=== PATIENT | female | born 1980 | race Caucasian/White ===

== ENCOUNTER 2016-07-08 13:11 | Emergency (ER) | payer OTHER ==
[2016-07-08 13:43] VITALS: BP 130/93
[2016-07-08] MEDS ORDERED: Ketorolac INJ* 60 MG/2 ML VIAL IM ONE (13:59)
--- NOTE | 2016-07-08 14:10 | UC ---
Hip/Pelvis Pain - HPI Summary HPI Summary: patient presents with c/o left hip pain that began s/p slipping on wet grass this morning. Pt has history left labral tear and surgical repair. And left hip replacement and chronic pain, weakness, numbness and swelling. Pt left hip pain has worsened s/p slip on grass 4 hours ago. - History Of Current Complaint Chief Complaint: UCLowerExtremity Stated Complaint: LEFT LEG PAIN Time Seen by Provider: 07/08/16 13:35 Hx Obtained From: Patient Hx Last Menstrual Period: n/a ?: No Onset/Duration: Sudden Onset Timing: Constant Severity Initially: Mild Severity Currently: Moderate Character Of Pain: Sharp, Dull, Aching, Burning Aggravating Factor(s): Movement, Weight Bearing Alleviating Factor(s): Rest, Position Associated Signs And Symptoms: Positive: Other - left hip pain - Allergies/Home Medications Allergies/Adverse Reactions: Allergies Allergy/AdvReac Type Severity Reaction Status Date / Time Codeine Allergy Severe Difficulty Verified 01/30/16 15:23 Breathing, hives Sulfa Drugs Allergy Severe Difficulty Verified 01/30/16 15:23 Breathing, hives CI Pigment Blue 63 Allergy See Comment Verified 01/30/16 15:23 [From Cymbalta] Duloxetine [From Cymbalta] Allergy See Comment Verified 01/30/16 15:23 Gabapentin AdvReac Headache Verified 07/08/16 13:44 ADHESIVE Allergy Rash And Uncoded 01/30/16 15:23 Itching Home Medications: Home Medications Acetaminophen TAB* [Tylenol TAB*] 1,000 mg PO Q24H PRN 07/08/16 [History Confirmed 07/08/16] PMH/Surg Hx/FS Hx/Imm Hx - Additional Past Medical History Additional PMH: history of labral tear surgery left hip and total left hip repair. Previously Healthy: No - see Past surgical HX Other History Of: Negative For: HIV, Hepatitis B, Hepatitis C, Anticoagulant Therapy - Surgical History Surgical History: Yes Surgery Procedure, Year, and Place: tubal ligation. Hysterectomy (ovaries in tact) 04/2014; left hip labrum 03/2015 Dr. Capps, [facility]; Total hip 08/2015. KIDNEY STENTS [id number] THAT WERE REMOVED Other Surgical History: tubal ligation. Hysterectomy (ovaries in tact) 04/2014 - Family History Known Family History: Positive: None, Cardiac Disease, Hypertension - Social History Lives: With Family Alcohol Use: Rare Substance Use Type: None Smoking Status (MU): Never Smoked Tobacco - Immunization History Most Recent Influenza Vaccination: february 2015 Review of Systems Constitutional: Negative Skin: Negative Eyes: Negative ENT: Negative Respiratory: Negative Cardiovascular: Negative Gastrointestinal: Negative Genitourinary: Negative Motor: Decreased ROM - left hip Neurovascular: Negative Musculoskeletal: Arthralgia - left hip, Decreased ROM - left hip, Myalgia - left hip Neurological: Weakness - left hip Psychological: Negative All Other Systems Reviewed And Are Negative: Yes Physical Exam Triage Information Reviewed: Yes Vital Signs: Initial Vital Signs Temp 99 F 07/08/16 13:37 Pulse 94 07/08/16 13:37 Resp 18 07/08/16 13:37 BP 130/93 07/08/16 13:37 Vital Signs Reviewed: Yes Neck exam: Normal Respiratory Exam: Normal Musculoskeletal Exam: Other - left hip/thigh posterior large post surgical scar well healed, Neurological Exam: Other Neurological: Positive: Other: - left hip weakness Psychological Exam: Normal Skin Exam: Other - scar left hip/thigh s/p labral tear repair and left total hip replacement Hip Injury Course/Dx - Differential Dx/Diagnosis Differential Diagnosis/HQI/PQRI: Arthritis, Sprain, Strain Provider Diagnoses: left hip sprain. Discharge - Discharge Plan Condition: Stable Disposition: HOME Prescriptions: Ketorolac TAB * [Toradol TAB *] 10 mg PO Q6H #16 tab Patient Education Materials: Arthralgia (ED), Hip Pain (ED) Referrals: Salazar Potter MD [Primary Care Provider] - Genaro QUESADA,Nestor Romero [Medical Doctor] - Additional Instructions: Please follow up with your Orthopedic provider as soon as possible.
--- NOTE | 2016-07-08 14:43 | RAD ---
Indication: Left hip pain. 2 views of left hip and an AP view the pelvis demonstrates left hip replacement in satisfactory position. Pelvic ring is intact. IMPRESSION: Left hip replacement in satisfactory position.
== END 2016-07-08 14:49 | disposition home or self-care (01) ==
LOC: UCCORT 13:11
DX: S73.102A Unspecified sprain of left hip, initial encounter (principal); X50.0XXA Overexertion from strenuous movement or load, initial encounter; Z96.642 Presence of left artificial hip joint
CPT/HCPCS: 96372; 99212; G0463; J1885

== ENCOUNTER 2016-10-09 14:32 | Emergency (ER) | payer OTHER ==
--- NOTE | 2016-10-09 16:03 | RAD ---
Indication: Fall today. Burning sensation and extreme pain lateral and posterior LEFT hip with distal radiation. Total hip replacement. Comparison: January 30, 2016 radiographs. Technique: Noncontrast CT LEFT proximal femur diaphysis through knee. Multiplanar reformation. Report: Negative for subcutaneous edema or loculated hematoma. No CT abnormality of the skeletal musculature. Normal articular alignment at the knee. Minimal femoral tibial joint osteophytosis without significant joint space narrowing. Negative for knee joint effusion. 1.1 cm sharply circumscribed indolent appearing lesion at the posterior medial metaphysis of the femur with chondroid matrix calcifications is consistent with a benign osteochondroma. Negative for fracture. IMPRESSION: No traumatic injury of the visualized LEFT femur or knee evident.
--- NOTE | 2016-10-09 16:08 | RAD ---
Indication: Fall today. Burning sensation from the LEFT hip through the lower extremity. Total joint replacement. Comparison: Femur CT of the same date and July 08, 2016 radiographs. Technique: Multidetector CT pelvis without contrast. Multiplanar reformation with bone algorithm. Report: The prosthetic LEFT hip is normally located. No periprosthetic fracture or periprosthetic lucency to suggest loosening. Negative for pelvic fracture or joint diastases. No soft tissue plane hematoma evident. No significant skeletal muscle atrophy. Mild osteoarthritis at the pubic symphysis. Mild L4-L5 and moderate L5-S1 facet joint osteoarthritis. No suspicious finding of the visualized pelvic viscera. IMPRESSION: 1. Normally located LEFT total hip prosthesis without evidence for loosening or periprosthetic fracture. 2. No traumatic injury evident.
--- NOTE | 2016-10-09 16:38 | UC ---
Hip/Pelvis Pain - HPI Summary HPI Summary: HISTORY OF CHRONIC LEFT HIP AND LEG PAIN. TODAY FELL WHILE WALKING DOG. PAIN BECAME MORE SEVERE. HAS APPOINTMENT NEXT WEEK FOR FOLLOW UP WITH PRIMARY CARE TO SEEK MORE EVALUATION FOR CHRONIC CONCERN. ABLE TO BEAR WEIGHT. PAIN RADIATES DOWN LATERAL AND MEDIAL LEFT THIGH. SKIN IS SENSITIVE, NO RASHES. - History Of Current Complaint Chief Complaint: UCLowerExtremity Stated Complaint: HIP & LEG PAIN FROM FALL Time Seen by Provider: 10/09/16 14:59 Hx Obtained From: Patient, Family/Supervisor Delivery Department Hx Last Menstrual Period: n/a Onset/Duration: Sudden Onset, Gradual Onset, Lasting Hours, Still Present, Worse Since - TODAY Severity Initially: Moderate Severity Currently: Moderate Pain Intensity: 4 Pain Scale Used: 0-10 Numeric Character Of Pain: Dull, Aching, Burning Aggravating Factor(s): Movement, Weight Bearing Alleviating Factor(s): Nothing Associated Signs And Symptoms: Positive: Negative Related History: Similar Episode/Dx As - Risk Factors Septic Arthritis Risk Factor: Negative - Allergies/Home Medications Allergies/Adverse Reactions: Allergies Allergy/AdvReac Type Severity Reaction Status Date / Time Codeine Allergy Severe Difficulty Verified 10/09/16 14:37 Breathing, hives Sulfa Drugs Allergy Severe Difficulty Verified 10/09/16 14:37 Breathing, hives CI Pigment Blue 63 Allergy See Comment Verified 10/09/16 14:37 [From Cymbalta] Duloxetine [From Cymbalta] Allergy See Comment Verified 10/09/16 14:37 Gabapentin AdvReac Headache Verified 10/09/16 14:37 ADHESIVE Allergy Rash And Uncoded 10/09/16 14:37 Itching Home Medications: Home Medications Alendronate Sodium [Fosamax-] 1 tab PO WEEKLY 10/09/16 [History Confirmed ] PMH/Surg Hx/FS Hx/Imm Hx Previously Healthy: Yes Other History Of: Negative For: HIV, Hepatitis B, Hepatitis C, Anticoagulant Therapy - Surgical History Surgical History: Yes Surgery Procedure, Year, and Place: tubal ligation. Hysterectomy (ovaries in tact) 04/2014; left hip labrum 03/2015 Dr. Capps, [facility]; Total hip 08/2015. KIDNEY STENTS [id number] THAT WERE REMOVED Other Surgical History: tubal ligation. Hysterectomy (ovaries in tact) 04/2014 - Family History Known Family History: Positive: None, Cardiac Disease, Hypertension - Social History Occupation: Disabled Lives: With Family Alcohol Use: Rare Substance Use Type: None Smoking Status (MU): Never Smoked Tobacco - Immunization History Most Recent Influenza Vaccination: february 2015 Review of Systems Constitutional: Negative Skin: Negative Eyes: Negative ENT: Negative Respiratory: Negative Cardiovascular: Negative Gastrointestinal: Negative Genitourinary: Negative Motor: Negative Neurovascular: Negative Musculoskeletal: Arthralgia - LEFT HIP, LEFT THIGH, Myalgia Neurological: Negative Psychological: Negative All Other Systems Reviewed And Are Negative: Yes Physical Exam Triage Information Reviewed: Yes Appearance: Well-Appearing, No Pain Distress, Well-Nourished Vital Signs Reviewed: Yes Eye Exam: Normal ENT Exam: Normal ENT: Positive: Normal ENT inspection, Hearing grossly normal, TMs normal Dental Exam: Normal Neck exam: Normal Respiratory Exam: Normal Respiratory: Positive: Chest non-tender, Lungs clear, Normal breath sounds, No respiratory distress, No accessory muscle use Cardiovascular Exam: Normal Cardiovascular: Positive: RRR, No Murmur, Pulses Normal Abdominal Exam: Normal Musculoskeletal: Positive: ROM Intact, Strength Limited @ - LEFT HIP, Edema @ - LEFT THIGH Neurological Exam: Normal Psychological Exam: Normal Skin Exam: Normal Hip Injury Course/Dx - Differential Dx/Diagnosis Differential Diagnosis/HQI/PQRI: Sprain, Strain Provider Diagnoses: ACUTE ON CHRONIC PAIN LEFT HIP AND THIGH Discharge - Discharge Plan Condition: Stable Disposition: HOME Prescriptions: traMADol TAB* [Ultram*] 50 mg PO Q6HR PRN #20 tab MDD four tabs PRN Reason: Pain Patient Education Materials: Chronic Pain (ED), Hip Pain (ED), Leg Pain (ED) Referrals: Salazar Potter MD [Primary Care Provider] -
== END 2016-10-09 16:28 | disposition home or self-care (01) ==
LOC: UCEAST 14:32
DX: M25.552 Pain in left hip (principal); M79.652 Pain in left thigh; Z96.642 Presence of left artificial hip joint; Z88.5 Allergy status to narcotic agent; Z88.2 Allergy status to sulfonamides
CPT/HCPCS: 72192; 99212; G0463

== ENCOUNTER 2016-12-09 16:19 | Emergency (ER) | payer OTHER ==
[2016-12-09] MEDS ORDERED: Dexamethasone IV* 4 MG/ML 1 ML (4 MG) IM ONE (17:15)
[2016-12-09] MEDS ORDERED: Morphine INJ* 4 MG/ML 1 ML CARPUJECT IM ONE (17:15)
[2016-12-09] MEDS ORDERED: HYDROmorphone INJ* 2 MG/ML CARPUJECT SYRINGE IM ONE ×2 (18:17→20:11)
[2016-12-09] MEDS ORDERED: Methocarbamol TAB* 500 MG PO ONE (18:18)
--- NOTE | 2016-12-09 20:20 | ED ---
Ar Arnold Angela, scribed for Cristo Garcia MD on 12/09/16 at 1703 . Lower Extremity - HPI Summary HPI Summary: This pt is a 36 y/o female presenting to [facility] c/o worsening left hip pain since today. Pt states she had a hysterectomy in April 2014 and after this surgery she had severe left leg pain. Pt had left hip labrum surgery in 2015. She had total left hip replacement in August 2015. Pt was diagnosed with RSD this year and since then she has had ongoing pain every day. Pt reports that she had pain this morning but it was not as severe as it is right now. She states she laid down and upon waking up she had severe pain on left hip area. Pt has had this severe pain in the past before. Pt describes her pain as severe burn." She notes her pain radiates to the posterior aspect of her left leg and across her pelvic area. She describes sometimes burning on the left side of the perineal area and left sided abd burning. Pt additionally c/o sore feet, Pt denies fever, weakness in LE, saddle anesthesia, bowel or urinary incontinence. Before having this pain, she denies any trauma. Pt had an appointment on Dec.17 for a nerve block. Pt also has an upcoming appointment with her PCP on 12/14/16. Pt has taken tramadol before but states it does nothing for her. She states having taken oxycodone 10s in the past which has worked for her, but does not "like taking medications overall." - History of Current Complaint Chief Complaint: EDExtremityLower Stated Complaint: LEFT HIP AND LEG PAIN Hx Obtained From: Patient Hx Last Menstrual Period: none s/p hysterectomy Mechanism Of Injury: Other - pain since 2014 Onset of Pain: Hours Onset/Duration: Hours Severity Initially: Severe Severity Currently: Severe Pain Intensity: 9 Pain Scale Used: 0-10 Numeric Timing: Lasting Hours Location: Radiates To - left posterior leg, acros pelvic area Character Of Pain: Burning Associated Signs And Symptoms: Positive: Weakness. Negative: Fever Able to Bear Weight: Yes Related History: Other - diagnosed with RSD this year - Allergies/Home Medications Allergies/Adverse Reactions: Allergies Allergy/AdvReac Type Severity Reaction Status Date / Time Codeine Allergy Severe Difficulty Verified 12/09/16 16:27 Breathing, hives Sulfa Drugs Allergy Severe Difficulty Verified 12/09/16 16:27 Breathing, hives CI Pigment Blue 63 Allergy See Comment Verified 12/09/16 16:27 [From Cymbalta] Duloxetine [From Cymbalta] Allergy See Comment Verified 12/09/16 16:27 Gabapentin AdvReac Headache Verified 12/09/16 16:27 ADHESIVE Allergy Rash And Uncoded 12/09/16 16:27 Itching PMH/Surg Hx/FS Hx/Imm Hx Endocrine/Hematology History: Denies: Hx Anticoagulant Therapy, Hx Diabetes, Hx Thyroid Disease Cardiovascular History: Denies: Hx Congestive Heart Failure, Hx Deep Vein Thrombosis, Hx Hypertension , Hx Myocardial Infarction, Hx Pacemaker/ICD Respiratory History: Denies: Hx Asthma, Hx Chronic Obstructive Pulmonary Disease (COPD), Hx Lung Cancer, Hx Pneumonia, Hx Pulmonary Embolism GI History: Denies: Hx Gall Bladder Disease, Hx Gastrointestinal Bleed, Hx Ulcer, Hx Urosepsis History: Reports: Hx Kidney Stones - No stones, but has history of stents. Denies: Hx Renal Disease Sensory History: Denies: Hx Hearing Aid Neurological History: Reports: Hx Migraine - In the past. Denies: Hx Dementia, Hx Seizures, Hx Transient Ischemic Attacks (TIA) Psychiatric History: Reports: Hx Anxiety Denies: Hx Depression, Hx Panic Disorder, Hx Schizophrenia, Hx Bipolar Disorder - Surgical History Surgery Procedure, Year, and Place: tubal ligation. Hysterectomy (ovaries in tact) 04/2014; left hip labrum 03/2015 Dr. Capps, [facility]; Total hip 08/2015. KIDNEY STENTS [id number] THAT WERE REMOVED Infectious Disease History: No Infectious Disease History: Denies: Hx Clostridium Difficile, Hx Hepatitis, Hx Human Immunodeficiency Virus (HIV), Hx of Known/Suspected MRSA, Hx Shingles, Hx Tuberculosis, Hx Known/ Suspected VRE, Hx Known/Suspected VRSA, History Other Infectious Disease, Traveled Outside the [place] in Last 30 Days - Family History Known Family History: Positive: Cardiac Disease, Hypertension - Social History Alcohol Use: Rare Substance Use Type: Reports: None Smoking Status (MU): Never Smoked Tobacco Review of Systems Negative: Fever, Chills Eyes: Negative ENT: Negative Cardiovascular: Negative Respiratory: Negative Negative: incontinence - bowel or urinary, other - saddle anesthesia Positive: Other - left hip pain, posterior leg pain, pelvic area pain, left hip severe burning sensation, sore feet. Negative: Weakness, Numbness All Other Systems Reviewed And Are Negative: Yes Physical Exam - Summary Physical Exam Summary: Appearance: Well-appearing, Well-nourished. Pt is in no acute distress. Skin: Warm Eyes: Normal ENT: Normal Neck: Supple, nontender Respiratory: Clear to auscultation Cardiovascular: Normal Abdomen: Soft, nontender Bowel: Present Musculoskeletal: There is no erythema or edema around left hip. There is limited ROM secondary to pain. There is no numbness or weakness in LE. There is mild tenderness to palpation around the left hip. There are normal pulses in distal LE. Neurological: Normal, A&Ox3 Psychiatric: Normal Triage Information Reviewed: Yes Vital Signs On Initial Exam: Initial Vitals Temp Pulse Resp BP Pulse Ox 97.8 F 88 20 149/128 97 12/09/16 16:21 12/09/16 16:21 12/09/16 16:21 12/09/16 16:21 12/09/16 16:21 Vital Signs Reviewed: Yes - Bin Coma Scale Coma Scale Total: 15 Diagnostics - Vital Signs Vital Signs Temp Pulse Resp BP Pulse Ox 12/09/16 16:21 97.8 F 88 20 149/128 97 - Laboratory Lab Statement: Any lab studies that have been ordered have been reviewed, and results considered in the medical decision making process. Re-Evaluation - Re-Evaluation Second Eval Re-Evaluation Time: 20:00 Lower Extremity Course/Dx - Diagnoses Provider Diagnoses: RSD (reflex sympathetic dystrophy) Discharge - Discharge Plan Condition: Improved Disposition: HOME Prescriptions: Oxycodone TAB(NF) [Oxycodone HCl 10 MG] 10 mg PO Q6H PRN #10 tab MDD 4 TABS PRN Reason: Pain - Moderate To Severe Patient Education Materials: Hip Pain (ED) Referrals: Salazar Potter MD [Primary Care Provider] - Omari Martinez MD [Medical Doctor] - Additional Instructions: PLEASE MAKE AN APPOINTMENT FIRST THING IN THE MORNING TO BE SEEN BY YOUR NEUROLOGIST WITHIN 1 WEEK PLEASE RETURN TO THE EMERGENCY ROOM IF YOU HAVE ANY WORSENING OR CONCERNING SYMPTOMS The documentation as recorded by the Ar ray Angela accurately reflects the service I personally performed and the decisions made by , Cristo Garcia MD.
[2016-12-09] MEDS ORDERED: oxyCODONE TAB* 5 MG TAB PO ONE (20:51)
[2016-12-09 21:07] VITALS: BP 133/90
== END 2016-12-09 21:07 | disposition home or self-care (01) ==
LOC: ED 16:19
DX: G90.50 Complex regional pain syndrome I, unspecified (principal); M25.552 Pain in left hip
CPT/HCPCS: 96372; 99283; A9270-GY; J1100; J1170; J2270

== ENCOUNTER 2016-12-27 21:51 | Emergency (ER) | payer OTHER ==
[2016-12-27] MEDS ORDERED: HYDROmorphone INJ* 2 MG/ML CARPUJECT SYRINGE IV SLOW PU ONE ×2 (22:12→23:31)
[2016-12-27] MEDS ORDERED: Ondansetron INJ* 2 MG/ML VIAL IV ONE ×2 (22:13→23:36)
--- NOTE | 2016-12-27 22:33 | ED ---
Lower Extremity - HPI Summary HPI Summary: 36 female presents to ED [facility] with complaints of left hip pain with history of CRPS that began a few hours ago today. Patient states pain began suddenly while walking in [place]. Patient has chronic L hip pain not improved with several procedures and treatments over the past 2 years. She first noticed the pain upon wakening from a hysterectomy 2 years ago. She was told she had a labrum tear and that she needed surgery. After the surgery, she developed worsening pain. he then had a full hip replacement d/t the pain, which again, worsened the pain. PCP is Latesha who is trying to get her in to see Dr. Samaniego at the pain clinic, this week as planned. Has had oxycodone in the past with mild improvement. She is tearful on exam. at bedside. Patient states she gets similar pain sometimes but nothing as excruciating as this. Patient states she felt as though her hip was locking out and all of a sudden was unable to move it due to the pain. also complaining of nausea/vomiting due to pain. Patient denies numbness/tingling currently but does have it chronically intermittently. Patient states the pain is sharp and shooting anterior left hip and groin. Does not radiate. No bladder/bowel incontinence. Has not taken any medication for pain today. No trauma or injury. Unable to bear weight, walk or move without significant pain of left hip 10/10. No recent travel or prolonged bed rest. Does use cigarettes. She is tearful on exam. at bedside. - History of Current Complaint Chief Complaint: EDHipPelvisInjury Stated Complaint: LT HIP PAIN Time Seen by Provider: 12/27/16 22:03 Hx Obtained From: Patient Hx Last Menstrual Period: none s/p hysterectomy Mechanism Of Injury: Unknown Onset of Pain: Hours, Prior to Arrival Onset/Duration: Worse Since Severity Initially: Moderate Severity Currently: Severe Pain Intensity: 10 Pain Scale Used: 0-10 Numeric Timing: Constant Location: Is Discrete @ - left anterior hip/ groin Character Of Pain: Sharp - shooting Associated Signs And Symptoms: Positive: Negative Aggravating Factor(s): Standing, Movement, Weight Bearing Alleviating Factor(s): Rest, Nothing Able to Bear Weight: No - Allergies/Home Medications Allergies/Adverse Reactions: Allergies Allergy/AdvReac Type Severity Reaction Status Date / Time Codeine Allergy Severe Difficulty Verified 12/27/16 21:57 Breathing, hives Sulfa Drugs Allergy Severe Difficulty Verified 12/27/16 21:57 Breathing, hives CI Pigment Blue 63 Allergy See Comment Verified 12/27/16 21:57 [From Cymbalta] Duloxetine [From Cymbalta] Allergy See Comment Verified 12/27/16 21:57 Gabapentin AdvReac Headache Verified 12/27/16 21:57 ADHESIVE Allergy Rash And Uncoded 12/27/16 21:57 Itching PMH/Surg Hx/FS Hx/Imm Hx Endocrine/Hematology History: Denies: Hx Anticoagulant Therapy, Hx Diabetes, Hx Thyroid Disease Cardiovascular History: Denies: Hx Congestive Heart Failure, Hx Deep Vein Thrombosis, Hx Hypertension , Hx Myocardial Infarction, Hx Pacemaker/ICD Respiratory History: Denies: Hx Asthma, Hx Chronic Obstructive Pulmonary Disease (COPD), Hx Lung Cancer, Hx Pneumonia, Hx Pulmonary Embolism GI History: Denies: Hx Gall Bladder Disease, Hx Gastrointestinal Bleed, Hx Ulcer, Hx Urosepsis History: Reports: Hx Kidney Stones - No stones, but has history of stents. Denies: Hx Renal Disease Sensory History: Denies: Hx Hearing Aid Neurological History: Reports: Hx Migraine - In the past., Other Neuro Impairments/Disorders - CRPS Denies: Hx Dementia, Hx Seizures, Hx Transient Ischemic Attacks (TIA) Psychiatric History: Reports: Hx Anxiety Denies: Hx Depression, Hx Panic Disorder, Hx Schizophrenia, Hx Bipolar Disorder - Surgical History Surgery Procedure, Year, and Place: tubal ligation. Hysterectomy (ovaries in tact) 04/2014; left hip labrum 03/2015 Dr. Capps, [facility]; Total hip 08/2015. KIDNEY STENTS [id number] THAT WERE REMOVED Infectious Disease History: No Infectious Disease History: Denies: Hx Clostridium Difficile, Hx Hepatitis, Hx Human Immunodeficiency Virus (HIV), Hx of Known/Suspected MRSA, Hx Shingles, Hx Tuberculosis, Hx Known/ Suspected VRE, Hx Known/Suspected VRSA, History Other Infectious Disease, Traveled Outside the [place] in Last 30 Days - Family History Known Family History: Positive: None, Cardiac Disease, Hypertension - Social History Alcohol Use: Rare Hx Substance Use: No Substance Use Type: Reports: None Hx Tobacco Use: No Smoking Status (MU): Never Smoked Tobacco Review of Systems Constitutional: Negative Cardiovascular: Negative Respiratory: Negative Positive: Arthralgia, Myalgia, Decreased ROM - left hip Skin: Negative Neurological: Negative All Other Systems Reviewed And Are Negative: Yes Physical Exam Triage Information Reviewed: Yes Vital Signs On Initial Exam: Initial Vitals Temp Pulse Resp BP Pulse Ox 98.7 F 83 18 106/64 98 12/27/16 21:55 12/27/16 21:55 12/27/16 21:55 12/27/16 21:55 12/27/16 21:55 Vital Signs Reviewed: Yes Appearance: Positive: Well-Appearing, Well-Nourished, Pain Distress - moderate- severe Skin: Positive: Warm, Skin Color Reflects Adequate Perfusion, Dry, Other - scar noted at left hip from prior surgical repair/replacement of hip. Negative: Cold , Soft, Cyanosis @, Pale, Erythema @ Head/Face: Positive: Normal Head/Face Inspection Eyes: Positive: Conjunctiva Clear ENT: Positive: Hearing grossly normal Neck: Positive: Supple, Nontender Respiratory/Lung Sounds: Positive: Clear to Auscultation, Breath Sounds Present. Negative: Rales, Rhonchi, Wheezes Cardiovascular: Positive: Normal, RRR, Pulses are Symmetrical in both Upper and Lower Extremities - 2+ pedal b/l. Negative: Murmur, Rub Bowel Sounds: Positive: Present Musculoskeletal: Positive: Limited @ - unable to move left hip/ LE due to pain, Pain @ - left hip with movement and touch. Negative: Interruption @ - exam however limited due to patient being uncooperative, Abnormal @ - no obvious crepitus step off or obvious deformity noted, LE appear to be of equal length and not externally rotated. however exam again was limited due to patients pain and unable to move LE for examination, laying on right side during exam, Edema Left, Edema Right Neurological: Positive: Normal, Sensory/Motor Intact, Alert, Oriented to Person Place, Time, CN Intact II-III, NV Bundle Intact Distally, Unable to Assess Gait. Negative: Normal Gait Diagnostics - Vital Signs Vital Signs Temp Pulse Resp BP Pulse Ox 12/27/16 21:59 86 98 12/27/16 21:56 106/64 12/27/16 21:55 98.7 F 83 18 106/64 98 - Laboratory Result Diagrams: 12/27/16 22:50 12/27/16 22:50 Lab Statement: Any lab studies that have been ordered have been reviewed, and results considered in the medical decision making process. - Radiology left hip/pelvis Xray Interpretation: No Acute Changes Radiology Interpretation Completed By: ED Physician - myself and Dr Husain - Ultrasound No standard instances Ultrasound Interpretation: No Acute Changes - No DVT Ultrasound Interpretation Completed By: Radiologist - and myself Re-Evaluation - Re-Evaluation First Eval Re-Evaluation Time: 23:15 Change: Improved - had some relief after medication from pain and nausea Second Eval Re-Evaluation Time: 00:30 Change: Improved - feeling a little better after medication, updated on labs and imaging, waiting u/s results Lower Extremity Course/Dx - Course Course Of Treatment: xray of hip and pelvis obtained and unremarkable. given toradol, dilaudid, valium and zofran. had some relief. U/S obtained and negative. normal labs, vitals and PE findings. no concern for infection or neurologic deficit. Patient has been seen multiple times for similar pain without findings. appears to be chronic issue related to CRPS. told she would have to have follow up with pcp and chronic pain physician. continue pain medication, NSAID and muscle relaxer at home. rest. continue attempt to get into pain clinc this week, as planned. aware of worsening signs and symptoms. follow up with pcp. patient understands and voices no concerns. I stop reference :Reference #: [id number] - Diagnoses Differential Diagnosis/HQI/PQRI: Positive: Arthritis, Dislocation, Infection, Sprain, Strain Provider Diagnoses: Chronic left hip pain, CRPS (complex regional pain syndrome) - Physician Notifications Discussed Care Of Patient With: Dr Husain Discharge - Discharge Plan Condition: Stable Disposition: HOME Prescriptions: Baclofen TAB* [Lioresal TAB*] 5 mg PO TID PRN #15 tab PRN Reason: Spasms oxyCODONE TAB* [Roxycodone TAB 5 mg*] 10 mg PO Q8H PRN #8 tab MDD 2 PRN Reason: Pain Patient Education Materials: Hip Pain (ED) Referrals: Malka Charlton MD [Primary Care Provider] - Additional Instructions: Take medications as prescribed only as needed. Recommend finding CRPS specialist. Please follow up with Dr. Samaniego and your PCP Continue to take ibuprofen 600mg three times daily
[2016-12-27 23:10] LABS: Hematocrit 38 % (35-47); Hemoglobin 13.4 g/dl (12.0-16.0); Mean Corpuscular HGB Conc 35 g/dl (31-36); Mean Corpuscular Hemoglobin 33 pg (27-31); Mean Corpuscular Volume 94 fL (80-97); Mean Platelet Volume 9 um3 (7.4-10.4); Red Blood Count 4.08 10^6/ul (4.0-5.4); Red Cell Distribution Width 13 % (10.5-15); White Blood Count 9.5 10^3/ul (3.5-10.8)
[2016-12-27] MEDS ORDERED: Ketorolac INJ* 30 MG/ML 1 ML VIAL IV PUSH ONE (23:21)
[2016-12-27] MEDS ORDERED: Orphenadrine Citrate IV* 30 MG/ML 2 ML VIAL IV ONE (23:21)
[2016-12-27 23:24] LABS: ALT 13 U/L (7-52); AST 12 U/L (13-39); Albumin 3.9 g/dL (3.2-5.2); Alkaline Phosphatase 50 U/L (34-104); Anion Gap 4 mmol/L (2-11); BUN/Creatinine Ratio 20.5 (8-20); Blood Urea Nitrogen 16 mg/dL (6-24); CO2 Carbon Dioxide 27 mmol/L (22-32); Calcium 9.5 mg/dL (8.6-10.3); Chloride 104 mmol/L (101-111); EGFR African American 107.5 (>60); EGFR Non-African American 83.6 (>60); Globulin 2.6 g/dL (2-4); Glucose 92 mg/dL (70-100); Potassium 3.6 mmol/L (3.5-5.0); Sodium 135 mmol/L (133-145); Total Protein 6.5 g/dL (6.4-8.9)
[2016-12-27] MEDS ORDERED: Promethazine INJ(RESTRICTED)* 25 MG/ML 1 ML VIAL IV ONE (23:31)
[2016-12-27] MEDS ORDERED: Diazepam SYRINGE* 5 MG/ML 10 ML SYRINGE (50 MG total) IV ONE (23:35)
[2016-12-28] MEDS ORDERED: oxyCODONE TAB* 5 MG TAB PO ONE (01:36)
[2016-12-28 01:45] VITALS: BP 91/60
[2016-12-28 03:47] LABS: C Reactive Protein < 1.00 mg/L (< 5.00)
--- NOTE | 2016-12-28 07:37 | RAD ---
HISTORY: Left hip pain COMPARISONS: July 08, 2016 VIEWS: 3, Frontal view of the pelvis with frontal and frog-leg views of the left hip FINDINGS: BONE DENSITY: Normal. BONES: The patient is status post left hip arthroplasty. There is no hardware failure or osteolysis. JOINTS: The patient is status post left hip arthroplasty. ALIGNMENT: There is no dislocation. SOFT TISSUES: Unremarkable. OTHER FINDINGS: None. IMPRESSION: STATUS POST LEFT HIP ARTHROPLASTY. NO ACUTE OSSEOUS INJURY. IF SYMPTOMS PERSIST, RECOMMEND REPEAT IMAGING.
--- NOTE | 2016-12-28 07:38 | RAD ---
HISTORY: Left leg pain COMPARISONS: None relevant TECHNIQUE: Multiple transverse and longitudinal ultrasound images were obtained of the left lower extremity from the level of the common femoral vein inferiorly through to the infrapopliteal veins using grayscale, color Doppler, and spectral Doppler imaging with and without compression and with augmentation. Comparison images were obtained of the contralateral common femoral vein. FINDINGS: VEINS: The venous system of the left lower extremity is compressible throughout its course, with normal flow on color Doppler imaging and normal response to augmentation on spectral Doppler imaging. SOFT TISSUES: Unremarkable. OTHER FINDINGS: None. IMPRESSION: NO LEFT LOWER EXTREMITY DEEP VEIN THROMBOSIS
== END 2016-12-28 01:49 | disposition home or self-care (01) ==
LOC: ED 21:51
DX: M25.552 Pain in left hip (principal); G90.50 Complex regional pain syndrome I, unspecified
CPT/HCPCS: 36415; 80053; 85025; 86140; 96374; 96375; 96376; 99285; A9270-GY; J1170; J1885; J2405; J2550; J3360

== ENCOUNTER 2017-01-08 11:39 | Emergency (ER) | payer OTHER ==
[2017-01-08] MEDS ORDERED: HYDROmorphone INJ* 1 MG/ML CARPUJECT SYRINGE IV ONE (12:39)
[2017-01-08] MEDS ORDERED: PROCHLORPERAZINE INJ 5 MG/ML 2 ML VIAL IV PRN (12:39)
[2017-01-08] MEDS ORDERED: NS 0.9% 1000 ML* 1,000 ML IV ONE (12:39)
[2017-01-08] MEDS ORDERED: PROCHLORPERAZINE INJ 5 MG/ML 2 ML VIAL ONE (12:51)
[2017-01-08 12:56] LABS: Hematocrit 41 % (35-47); Hemoglobin 14.2 g/dl (12.0-16.0); Mean Corpuscular HGB Conc 35 g/dl (31-36); Mean Corpuscular Hemoglobin 32 pg (27-31); Mean Corpuscular Volume 93 fL (80-97); Mean Platelet Volume 9 um3 (7.4-10.4); Red Blood Count 4.37 10^6/ul (4.0-5.4); Red Cell Distribution Width 12 % (10.5-15); White Blood Count 4.1 10^3/ul (3.5-10.8)
[2017-01-08 13:13] LABS: ALT 11 U/L (7-52); AST 14 U/L (13-39); Albumin 4.3 g/dL (3.2-5.2); Alkaline Phosphatase 48 U/L (34-104); Anion Gap 8 mmol/L (2-11); Blood Urea Nitrogen 13 mg/dL (6-24); C Reactive Protein 1.46 mg/L (< 5.00); CO2 Carbon Dioxide 25 mmol/L (22-32); Calcium 9.7 mg/dL (8.6-10.3); Chloride 105 mmol/L (101-111); EGFR African American 102.9 (>60); Globulin 2.6 g/dL (2-4); Glucose 87 mg/dL (70-100); Potassium 3.6 mmol/L (3.5-5.0); Sodium 138 mmol/L (133-145); Total Protein 6.9 g/dL (6.4-8.9)
[2017-01-08 14:32] VITALS: BP 93/44
--- NOTE | 2017-01-08 16:42 | ED ---
Molly Arnold Gabriel, scribed for Kev Shah MD on 01/08/17 at 1238 . Complex/Multi-Sys Presentation - HPI Summary HPI Summary: This patient is a 36 year old F presenting to [facility] accompanied by with a chief complaint of vomiting since a week ago. Patient states that the chronic pain she is in triggers her vomiting. The patient rates the pain 8/10 in severity. These episodes are not uncommon for her but for the last week it has been more persistent. She is trying to get into the pain clinic currently. She saw her primary 2 days ago for this issue and was given Zofram but it has not alleviated any symptoms. She isnt able to tolerant PO intake and hasnt urinated in two days. - History Of Current Complaint Chief Complaint: EDNauseaVomitDiarrh Time Seen by Provider: 01/08/17 12:16 Hx Obtained From: Patient Onset/Duration: Lasting Weeks - 1, Still Present Timing: Intermittent, Lasting: Associated Signs And Symptoms: Positive: Other - pain Related History: Similar Episode/Diagnosed As: - Allergies/Home Medications Allergies/Adverse Reactions: Allergies Allergy/AdvReac Type Severity Reaction Status Date / Time Codeine Allergy Severe Difficulty Verified 12/27/16 21:57 Breathing, hives Sulfa Drugs Allergy Severe Difficulty Verified 12/27/16 21:57 Breathing, hives CI Pigment Blue 63 Allergy See Comment Verified 12/27/16 21:57 [From Cymbalta] Duloxetine [From Cymbalta] Allergy See Comment Verified 12/27/16 21:57 Gabapentin AdvReac Headache Verified 12/27/16 21:57 ADHESIVE Allergy Rash And Uncoded 12/27/16 21:57 Itching PMH/Surg Hx/FS Hx/Imm Hx Previously Healthy: No Endocrine/Hematology History: Denies: Hx Anticoagulant Therapy, Hx Diabetes, Hx Thyroid Disease Cardiovascular History: Denies: Hx Congestive Heart Failure, Hx Deep Vein Thrombosis, Hx Hypertension , Hx Myocardial Infarction, Hx Pacemaker/ICD Respiratory History: Denies: Hx Asthma, Hx Chronic Obstructive Pulmonary Disease (COPD), Hx Lung Cancer, Hx Pneumonia, Hx Pulmonary Embolism GI History: Denies: Hx Gall Bladder Disease, Hx Gastrointestinal Bleed, Hx Ulcer, Hx Urosepsis History: Reports: Hx Kidney Stones - No stones, but has history of stents. Denies: Hx Renal Disease Sensory History: Denies: Hx Hearing Aid Neurological History: Reports: Hx Migraine - In the past., Other Neuro Impairments/Disorders - CRPS Denies: Hx Dementia, Hx Seizures, Hx Transient Ischemic Attacks (TIA) Psychiatric History: Reports: Hx Anxiety Denies: Hx Depression, Hx Panic Disorder, Hx Schizophrenia, Hx Bipolar Disorder - Surgical History Surgery Procedure, Year, and Place: tubal ligation. Hysterectomy (ovaries in tact) 04/2014; left hip labrum 03/2015 Dr. Capps, [facility]; Total hip 08/2015. KIDNEY STENTS [id number] THAT WERE REMOVED Infectious Disease History: No Infectious Disease History: Denies: Hx Clostridium Difficile, Hx Hepatitis, Hx Human Immunodeficiency Virus (HIV), Hx of Known/Suspected MRSA, Hx Shingles, Hx Tuberculosis, Hx Known/ Suspected VRE, Hx Known/Suspected VRSA, History Other Infectious Disease, Traveled Outside the [place] in Last 30 Days - Family History Known Family History: Positive: Cardiac Disease, Hypertension - Social History Alcohol Use: Rare Hx Substance Use: No Substance Use Type: Reports: None Hx Tobacco Use: No Smoking Status (MU): Never Smoked Tobacco Review of Systems Positive: Vomiting Positive: Other - chronic pain All Other Systems Reviewed And Are Negative: Yes Physical Exam - Summary Physical Exam Summary: Appearance: The patient is well-nourished in no acute distress and in no acute pain. Skin: The skin is warm and dry and skin color reflects adequate perfusion. HEENT: ~The head is normocephalic and atraumatic. The pupils are equal and reactive. The conjunctivae are clear and without drainage. ~Nares are patent and without drainage. ~Mouth reveals moist mucous membranes and the throat is without erythema and exudate. ~The external ears are intact. The ear canals are patent and without drainage. The tympanic membranes are intact. Neck: the neck is supple with full range of motion and non-tender. There are no carotid bruits. ~There is no neck vein distension. Respiratory: Chest is non-tender. ~Lungs are clear to auscultation and breath sounds are symmetrical and equal. Cardiovascular: Heart is regular rate and rhythm. ~There is no murmur or rub auscultated. ~~There is no peripheral edema and pulses are symmetrical and equal. Abdomen: The abdomen is soft and non-tender. ~There are normal bowel sounds heard in all four quadrants and there is no organomegaly palpated. Musculoskeletal: There is no back tenderness noted. ~Tenderness to rom of left hip There is good capillary refill. ~There is no peripheral edema or calf tenderness elicited. Neurological: Patient is alert and oriented to person, place and time. ~The patient has symmetrical motor strength in all four extremities. ~Cranial nerves are grossly intact. Deep tendon reflexes are symmetrical and equal in all four extremities. Psychiatric: The patient has an appropriate affect and does not exhibit any anxiety or depression. Triage Information Reviewed: Yes Vital Signs On Initial Exam: Initial Vitals Temp Pulse Resp BP Pulse Ox 98.0 F 87 18 124/94 98 01/08/17 11:58 01/08/17 11:58 01/08/17 11:58 01/08/17 11:58 01/08/17 11:58 Vital Signs Reviewed: Yes Diagnostics - Vital Signs Vital Signs Temp Pulse Resp BP Pulse Ox 01/08/17 11:58 98.0 F 87 18 124/94 98 - Laboratory Lab Results: Lab Results 01/08/17 01/08/17 Range/Units 12:45 12:45 WBC 4.1 (3.5-10.8) 10^3/ul RBC 4.37 (4.0-5.4) 10^6/ul Hgb 14.2 (12.0-16.0) g/dl Hct 41 (35-47) % MCV 93 (80-97) fL MCH 32 H (27-31) pg MCHC 35 (31-36) g/dl RDW 12 (10.5-15) % Plt Count 224 (150-450) 10^3/ul MPV 9 (7.4-10.4) um3 Neut % (Auto) 49.2 (38-83) % Lymph % (Auto) 36.4 (25-47) % [place] % (Auto) 12.9 H (1-9) % Eos % (Auto) 0.9 (0-6) % Baso % (Auto) 0.6 (0-2) % Absolute Neuts (auto) 2.0 (1.5-7.7) 10^3/ul Absolute Lymphs (auto) 1.5 (1.0-4.8) 10^3/ul Absolute Monos (auto) 0.5 (0-0.8) 10^3/ul Absolute Eos (auto) 0 (0-0.6) 10^3/ul Absolute Basos (auto) 0 (0-0.2) 10^3/ul Absolute Nucleated RBC 0 10^3/ul Nucleated RBC % 0 Sodium 138 (133-145) mmol/L Potassium 3.6 (3.5-5.0) mmol/L Chloride 105 (101-111) mmol/L Carbon Dioxide 25 (22-32) mmol/L Anion Gap 8 (2-11) mmol/L BUN 13 (6-24) mg/dL Creatinine 0.81 (0.51-0.95) mg/dL Est GFR ( Amer) 102.9 (>60) Est GFR (Non-Af Amer) 80.0 (>60) BUN/Creatinine Ratio 16.0 (8-20) Glucose 87 (70-100) mg/dL Calcium 9.7 (8.6-10.3) mg/dL Total Bilirubin 1.90 H (0.2-1.0) mg/dL AST 14 (13-39) U/L ALT 11 (7-52) U/L Alkaline Phosphatase 48 (34-104) U/L C-Reactive Protein 1.46 (< 5.00) mg/L Total Protein 6.9 (6.4-8.9) g/dL Albumin 4.3 (3.2-5.2) g/dL Globulin 2.6 (2-4) g/dL Albumin/Globulin Ratio 1.7 (1-3) Beta HCG, Quant < 0.60 mIU/mL Result Diagrams: 01/08/17 12:45 01/08/17 12:45 Lab Statement: Any lab studies that have been ordered have been reviewed, and results considered in the medical decision making process. Complex Multi-Symp Course/Dx Course Of Treatment: Ms. Shah has been coming in every ten days or so for narcotics to control the pain in her left side and hip. A month os so ago she was referred to [facility] for injections which shee says made her worse. She initially did not want to take medications but now is willing and has been referred to Dr. Samaniego but does not yet have an appointment. I spoke with Dr. samaniego who will get her in to the offic in a timely fashion so we can get some structure to her pain control and better assess shat she needs. In the meantime , I will give her another short course of oxycodone. - Diagnoses Provider Diagnoses: Chronic pain - Physician Notifications Discussed Care Of Patient With: Soy Samaniego Time Discussed With Above Provider: 12:56 Instructed by Provider To: Other - Discussed patient care with in an attempt to address her chronic pain. Discharge - Discharge Plan Condition: Stable Disposition: HOME Prescriptions: oxyCODONE/Acetamin 5/325 MG* [Percocet 5/325 TAB*] 1 tab PO Q6H PRN #20 tab MDD 4 PRN Reason: Pain Patient Education Materials: Oxycodone/Acetaminophen (By mouth), Chronic Pain ( ED) Referrals: Malka Charlton MD [Primary Care Provider] - Soy Samaniego DO [Doctor of Osteopathy] - 3 Days Additional Instructions: RETURN TO THE EMERGENCY DEPARTMENT FOR CHANGING OR WORSENING SYMPTOMS. The documentation as recorded by the Molly ray Gabriel accurately reflects the service I personally performed and the decisions made by me, Kev Shah MD.
== END 2017-01-08 14:33 | disposition home or self-care (01) ==
LOC: ED 11:39
DX: G89.29 Other chronic pain (principal); Z88.5 Allergy status to narcotic agent; Z88.2 Allergy status to sulfonamides; F41.9 Anxiety disorder, unspecified
CPT/HCPCS: 36415; 80053; 84702; 85025; 86140; 96360; 96374; 96375; 99281; J0780; J1170

== ENCOUNTER 2017-01-24 10:31 | Emergency (ER) | payer OTHER ==
--- NOTE | 2017-01-24 13:02 | ED ---
Lower Extremity - HPI Summary HPI Summary: 36 female presents to ED with complaints of chronic left hip pain with history of CRPS that began suddenly yesterday and worsened today. States she feels it is spasming. Patient has chronic L hip pain not improved with several procedures and treatments over the past 2 years. PCP is Latesha who who got her in to see Dr. Samaniego at the pain clinic, however not until, February 17. Has had oxycodone in the past with mild improvement. Patient was seen here a month ago with similar complaints and episode of chronic pain flare. Has not taken any medications at home. at bedside. Patient denies numbness/ tingling currently. Patient states the pain is sharp and shooting anterior left hip and groin. Does not radiate. No bladder/bowel incontinence. No urinary complaints. No new trauma or injury. Unable to bear weight, walk or move without significant pain of left hip 11/17. No recent travel or prolonged bed rest. Does use cigarettes. No other complaints at this time. - History of Current Complaint Chief Complaint: EDExtremityLower Stated Complaint: LEFT LEG PAIN Time Seen by Provider: 01/24/17 11:46 Hx Obtained From: Patient Hx Last Menstrual Period: none s/p hysterectomy Mechanism Of Injury: Other - none Onset of Pain: Days Onset/Duration: Worse Since Severity Initially: Moderate Severity Currently: Severe Pain Intensity: 10 Pain Scale Used: 0-10 Numeric Location: Is Discrete @ - left hip/groin area Character Of Pain: Sharp, Aching, Spasmodic Associated Signs And Symptoms: Positive: Negative Aggravating Factor(s): Standing, Ambulation, Movement, Weight Bearing Alleviating Factor(s): Rest - position Able to Bear Weight: Yes - however not without excrutiating pain 11/17 - Allergies/Home Medications Allergies/Adverse Reactions: Allergies Allergy/AdvReac Type Severity Reaction Status Date / Time Codeine Allergy Severe Difficulty Verified 12/27/16 21:57 Breathing, hives Sulfa Drugs Allergy Severe Difficulty Verified 12/27/16 21:57 Breathing, hives CI Pigment Blue 63 Allergy See Comment Verified 12/27/16 21:57 [From Cymbalta] Duloxetine [From Cymbalta] Allergy See Comment Verified 12/27/16 21:57 Gabapentin AdvReac Headache Verified 12/27/16 21:57 ADHESIVE Allergy Rash And Uncoded 12/27/16 21:57 Itching PMH/Surg Hx/FS Hx/Imm Hx Endocrine/Hematology History: Denies: Hx Anticoagulant Therapy, Hx Diabetes, Hx Thyroid Disease Cardiovascular History: Denies: Hx Congestive Heart Failure, Hx Deep Vein Thrombosis, Hx Hypertension , Hx Myocardial Infarction, Hx Pacemaker/ICD Respiratory History: Denies: Hx Asthma, Hx Chronic Obstructive Pulmonary Disease (COPD), Hx Lung Cancer, Hx Pneumonia, Hx Pulmonary Embolism GI History: Denies: Hx Gall Bladder Disease, Hx Gastrointestinal Bleed, Hx Ulcer, Hx Urosepsis History: Reports: Hx Kidney Stones - No stones, but has history of stents. Denies: Hx Renal Disease Sensory History: Denies: Hx Hearing Aid Neurological History: Reports: Hx Migraine - In the past., Other Neuro Impairments/Disorders - CRPS Denies: Hx Dementia, Hx Seizures, Hx Transient Ischemic Attacks (TIA) Psychiatric History: Reports: Hx Anxiety Denies: Hx Depression, Hx Panic Disorder, Hx Schizophrenia, Hx Bipolar Disorder - Surgical History Surgery Procedure, Year, and Place: tubal ligation. Hysterectomy (ovaries in tact) 04/2014; left hip labrum 03/2015 Dr. Capps, [facility]; Total hip 08/2015. KIDNEY STENTS [id number] THAT WERE REMOVED - Immunization History Immunizations Up to Date: Yes Infectious Disease History: No Infectious Disease History: Denies: Hx Clostridium Difficile, Hx Hepatitis, Hx Human Immunodeficiency Virus (HIV), Hx of Known/Suspected MRSA, Hx Shingles, Hx Tuberculosis, Hx Known/ Suspected VRE, Hx Known/Suspected VRSA, History Other Infectious Disease, Traveled Outside the [place] in Last 30 Days - Family History Known Family History: Positive: None, Cardiac Disease, Hypertension - Social History Alcohol Use: Rare Hx Substance Use: No Substance Use Type: Reports: None Hx Tobacco Use: No Smoking Status (MU): Never Smoked Tobacco Review of Systems Constitutional: Negative Cardiovascular: Negative Respiratory: Negative Positive: Arthralgia, Myalgia, Decreased ROM - left hip Neurological: Negative All Other Systems Reviewed And Are Negative: Yes Physical Exam Triage Information Reviewed: Yes Vital Signs On Initial Exam: Initial Vitals Temp Pulse Resp BP Pulse Ox 98.2 F 89 18 124/88 98 01/24/17 10:41 01/24/17 10:41 01/24/17 10:41 01/24/17 10:41 01/24/17 10:41 Vital Signs Reviewed: Yes Appearance: Positive: Well-Appearing, Well-Nourished, Pain Distress - moderate Skin: Positive: Warm, Skin Color Reflects Adequate Perfusion, Dry. Negative: Cold, Cyanosis @, Pale, Erythema @ Head/Face: Positive: Normal Head/Face Inspection Eyes: Positive: Conjunctiva Clear ENT: Positive: Hearing grossly normal Neck: Positive: Supple, Nontender Respiratory/Lung Sounds: Positive: Clear to Auscultation, Breath Sounds Present. Negative: Rales, Rhonchi, Wheezes Cardiovascular: Positive: Normal, RRR, Pulses are Symmetrical in both Upper and Lower Extremities - 2+ pedal b/l. Negative: Murmur, Rub Abdomen Description: Positive: Nontender, Soft Bowel Sounds: Positive: Present Musculoskeletal: Positive: Limited @ - left LE due to pain, Pain @ - left LE hip / proximal extremity, Other - no crepitus, step off or obvious deformity. no ecchymosis. mild spasming noted during examination. Negative: Interruption @, Abnormal @, Claire Sign Left, Claire Sign Right, Edema Left, Edema Right Neurological: Positive: Normal, Sensory/Motor Intact, Alert, Oriented to Person Place, Time, CN Intact II-III, Reflexes Intact, NV Bundle Intact Distally, Unable to Assess Gait - due to pain - Bin Coma Scale Coma Scale Total: 15 Diagnostics - Vital Signs Vital Signs Temp Pulse Resp BP Pulse Ox 01/24/17 10:41 98.2 F 89 18 124/88 98 - Laboratory Lab Statement: Any lab studies that have been ordered have been reviewed, and results considered in the medical decision making process. Re-Evaluation - Re-Evaluation First Eval Re-Evaluation Time: 15:30 Change: Improved - had some relief from spasms after medication Second Eval Re-Evaluation Time: 16:39 Change: Improved - patient had some relief after medication and is ready to be d /c Lower Extremity Course/Dx - Course Course Of Treatment: given pain medication and muscle relaxant. had relief. no new trauma or injury. Patient is suffering from chronic leg pain that due to her CRPS. therefore no imaging obtained. given 3 days supply of pain releif and muscle relaxant. told she needs to continue trying to get into pain clinic, has appointment february 17. educated the dangers and risks of opiate use and that I will not be able to supply any more to take at home as this has been an ongoing issue for months and due to concern for addiction and adverse effects. patient understands and agrees, voices no concerns. Patient has been seen multiple times for similar pain without findings.no concern for other etiology at this time. appears to be chronic issue related to CRPS. Continue NSAIDs. - Diagnoses Differential Diagnosis/HQI/PQRI: Positive: Strain, Other - crps, chronic left leg pain Provider Diagnoses: Chronic pain of left lower extremity, CRPS (complex regional pain syndrome) Discharge - Discharge Plan Condition: Stable Disposition: HOME Prescriptions: Baclofen TAB* [Lioresal TAB*] 5 mg PO TID PRN #15 tab PRN Reason: Spasms oxyCODONE TAB* [Roxycodone TAB 5 mg*] 10 mg PO Q8H PRN #10 tab MDD 2 PRN Reason: Pain Patient Education Materials: Arthralgia (ED), Leg Pain (ED) Referrals: Malka Charlton MD [Primary Care Provider] - Additional Instructions: Take medications as prescribed only as needed. Recommend finding CRPS specialist. Please follow up with Dr. Samaniego and your PCP Continue to take ibuprofen 600mg three times daily, starting tomorrow.
[2017-01-24] MEDS ORDERED: Ketorolac INJ* 30 MG/ML 1 ML VIAL IV PUSH ONE (13:04)
[2017-01-24] MEDS ORDERED: Diazepam SYRINGE* 5 MG/ML 2 ML SYRINGE (10 MG total) IV ONE ×2 (13:04→14:32)
[2017-01-24] MEDS ORDERED: Ondansetron INJ* 2 MG/ML VIAL IV ONE (14:36)
[2017-01-24] MEDS ORDERED: HYDROmorphone INJ* 2 MG/ML CARPUJECT SYRINGE IV SLOW PU ONE (16:02)
[2017-01-24 17:00] VITALS: BP 110/67
== END 2017-01-24 16:48 | disposition home or self-care (01) ==
LOC: ED 10:31
DX: G90.522 Complex regional pain syndrome I of left lower limb (principal); Z88.5 Allergy status to narcotic agent; Z88.2 Allergy status to sulfonamides
CPT/HCPCS: 96374; 96375; 99282; J1170; J1885; J2405; J3360

== ENCOUNTER 2017-02-08 16:02 | Observation (INO) | payer OTHER ==
[2017-02-08] MEDS ORDERED: HYDROmorphone INJ* 1 MG/ML CARPUJECT SYRINGE IM ONE (17:08)
[2017-02-08] MEDS ORDERED: Ondansetron ODT TAB* 4 MG PO ONE (17:08)
[2017-02-08] MEDS ORDERED: LORazepam TAB(*) 1 MG PO ONE (18:26)
[2017-02-08] MEDS ORDERED: NS 0.9% 1000 ML* 1,000 ML IV ONE (22:20)
[2017-02-08] MEDS ORDERED: Diazepam SYRINGE* 5 MG/ML 2 ML SYRINGE (10 MG total) IV ONE (22:21)
[2017-02-08] MEDS ORDERED: Metoclopramide IV* 5 MG/ML 2 ML VIAL IV SLOW PU ONE (22:21)
[2017-02-08] MEDS ORDERED: Ketorolac INJ* 30 MG/ML 1 ML VIAL IV PUSH ONE (22:22)
[2017-02-08 22:39] LABS: ABS Basophils 0 10^3/ul (0-0.2); ABS Eosinophils 0 10^3/ul (0-0.6); ABS Lymphocytes 2.4 10^3/ul (1.0-4.8); ABS Monocytes 0.6 10^3/ul (0-0.8); ABS Neutrophils 3.8 10^3/ul (1.5-7.7); ABS Nucleated RBC 0 10^3/ul; Eosinophil % 0.5 % (0-6); Hematocrit 38 % (35-47); Hemoglobin 13.2 g/dl (12.0-16.0); Mean Corpuscular HGB Conc 35 g/dl (31-36); Mean Corpuscular Hemoglobin 33 pg (27-31); Mean Corpuscular Volume 94 fL (80-97); Mean Platelet Volume 9 um3 (7.4-10.4); Nucleated Red Blood Cells % 0.1; Platelet Count 225 10^3/ul (150-450); Red Blood Count 4.05 10^6/ul (4.0-5.4); Red Cell Distribution Width 12 % (10.5-15); White Blood Count 6.9 10^3/ul (3.5-10.8)
[2017-02-08 22:53] LABS: EGFR Non-African American 99.6 (>60)
[2017-02-08] MEDS ORDERED: Ketorolac INJ* 60 MG/2 ML VIAL ONE (22:53)
[2017-02-08] MEDS ORDERED: LORazepam INJ* 2 MG/ML 1 ML VIAL IV PUSH ONE (23:16)
[2017-02-09] MEDS ORDERED: Cyclobenzaprine TAB* 10 MG PO ONE (00:01)
--- NOTE | 2017-02-09 00:53 | ED ---
Molly Arnold Gabriel, scribed for Markel Husain MD on 02/09/17 at 0050 . Progress - Progress Note Progress Note: Patient is still complaining of pain she is unable to move even with her cane and walker. Patient is lying in her right side. She is medicated with Ativan and Toradol which provided a little improvement but she is still having still pain. Patient will be admitted for pain management and difficulty walking. Course/Dx - Diagnoses Provider Diagnoses: Acute pain of left lower extremity, RSD (reflex sympathetic dystrophy) - Provider Notifications Discussed Care Of Patient With: Amadeo Nails Time Discussed With Above Provider: 00:09 Instructed by Provider To: Admit As Inpatient The documentation as recorded by the Molly ray Gabriel accurately reflects the service I personally performed and the decisions made by , Markel Husain MD.
[2017-02-09] MEDS ORDERED: CMCS: Melatonin (NF) 3 MG TAB PO PRN (01:08)
[2017-02-09] MEDS ORDERED: Acetaminophen TAB* 325 MG PO PRN (01:08)
[2017-02-09] MEDS: Baclofen TAB* 10 MG PO SCH ×4 (02:28→20:05)
[2017-02-09] MEDS: oxyCODONE TAB* 5 MG TAB PO PRN ×3 (02:28→20:05)
--- NOTE | 2017-02-09 04:31 | HP ---
H&P (Free Text) History and Physical: PCP: Renuka Charlton MD Date/Time: 02/09/2017 0100 CC: LLE pain HPI: Ms Shah is a 36YO female HX reflex sympathetic dystrophy of the LLE s/p L LUISA performed for progressive L hip burning pain which began after hysterectomy. Yesterday AM her large dog jumped on her causing increased pain which became intractable prompting presentation for evaluation. At its worst, the pain causes N/V. She is able to move the hip through a full ROM, but reports that it feels "locked". She denies change in bowel/bladder, F/C, rash, or other new issues. PMedHx RSD LLE R ureteral obstruction w/ HX stenting Ambulatory Orders Ondansetron ODT TAB* [Zofran 4 MG Odt TAB*] 8 mg PO Q6H PRN 02/09/17 Sertraline* [Zoloft*] 50 mg PO BEDTIME 02/09/17 Allergies Codeine Allergy (Severe, Verified 12/27/16 21:57) Difficulty Breathing, hives Sulfa Drugs Allergy (Severe, Verified 12/27/16 21:57) Difficulty Breathing, hives CI Pigment Blue 63 [From Cymbalta] Allergy (Verified 12/27/16 21:57) See Comment irregular heart beat and chest pains Duloxetine [From Cymbalta] Allergy (Verified 12/27/16 21:57) See Comment irregular heart beat and chest pains Gabapentin Adverse Reaction (Verified 12/27/16 21:57) Headache ADHESIVE Allergy (Uncoded 12/27/16 21:57) Rash And Itching PSurgHx L LUISA L hip labral tear repair hysterectomy uterine ablation SocHx: no tobacco, alcohol, or recreational drugs; lives with her mother/father , fiance`, & 2 children; review of [employer] reveals no suspicious activity; unemployed; full code status FamHx: Mother: alive, urolithiasis & TIA; Father: alive, HTN & AVR; Brother: congenital intellectual disability ROS: as above, otherwise reviewed and all were negative vitals: Vital Signs Temp 36.7 C 02/09/17 01:59 Pulse 70 02/09/17 01:59 Resp 17 02/09/17 02:28 BP 114/80 02/09/17 01:59 Pulse Ox 99 02/09/17 01:59 Intake & Output 02/08/17 02/08/17 02/09/17 11:59 23:59 11:59 Intake Total 1000 Balance 1000 Weight 72.575 kg 72.711 kg Intake: IV Fluids 1000 Constitutional: NAD, normally developed, overweight white female HEENM: atraumatic; sclera/conjunctiva: anicteric/clear; hearing: clinically intact; oropharynx: clear, mucosa moist Neck: soft tissue: non-tender; thyroid: normal Pulmonary: clear to auscultation bilaterally, good aeration, no accessory muscle use CV: RR/RR, normal S1S2, no carotid bruit, no jugular venous distention, 2+ B DP/ PT, no edema Abdominal: soft, non-distended, non-tender, no rebound/guarding/rigidity, normoactive bowel sounds, no hepatosplenomegaly or masses, no costovertebral angle tenderness Musculoskeletal: general: no atrophy, deformity, or abnormal appearance of LLE, L lateral thigh incision well healed Integumental: no rash or open wounds of LLE noted Psychiatric orientation: AA&O to PPTS affect: calm mood: cooperative eye contact: fair content: reliable responses: timely insight: fair Testing: Laboratory Results - last 24 hr 02/08/17 02/08/17 22:30 22:30 WBC 6.9 RBC 4.05 Hgb 13.2 Hct 38 MCV 94 MCH 33 H MCHC 35 RDW 12 Plt Count 225 MPV 9 Neut % (Auto) 55.9 Lymph % (Auto) 35.0 [place] % (Auto) 8.2 Eos % (Auto) 0.5 Baso % (Auto) 0.4 Absolute Neuts (auto) 3.8 Absolute Lymphs (auto) 2.4 Absolute Monos (auto) 0.6 Absolute Eos (auto) 0 Absolute Basos (auto) 0 Absolute Nucleated RBC 0 Nucleated RBC % 0.1 Sodium 138 Potassium 3.4 L Chloride 106 Carbon Dioxide 26 Anion Gap 6 BUN 8 Creatinine 0.67 Est GFR ( Amer) 128.1 Est GFR (Non-Af Amer) 99.6 BUN/Creatinine Ratio 11.9 Glucose 92 Calcium 8.6 Total Bilirubin 1.10 H AST 20 ALT 26 Alkaline Phosphatase 39 C-Reactive Protein < 1.00 Total Protein 6.5 Albumin 3.9 Globulin 2.6 Albumin/Globulin Ratio 1.5 Beta HCG, Quant 0.76 Impression: 36F HX RSD LLE presents with intractable pain DIAGNOSIS & PLAN Primary intractable pain LLE : pain control : PT evaluation Admission Rational: observation for intractable LLE pain DVTp: low risk; ambulation Code Status: full
[2017-02-09] MEDS: Omeprazole CAP* 20 MG PO SCH (05:46)
[2017-02-09] MEDS: traMADol TAB* 50 MG PO PRN ×3 (05:46→21:13)
[2017-02-09] MEDS: Docusate CAP* 100 MG PO SCH ×2 (08:22→20:17)
[2017-02-09] MEDS: Ondansetron INJ* 2 MG/ML VIAL IV PRN ×2 (09:52→17:47)
[2017-02-09] MEDS ORDERED: Diazepam TAB(*) 5 MG PO ONE (12:28)
[2017-02-09] MEDS ORDERED: Metoclopramide IV* 5 MG/ML 2 ML VIAL IV SLOW PU ONE (12:29)
--- NOTE | 2017-02-09 14:57 | ED ---
Mt Arnold Tecjoon, scribed for Kev Shah MD on 02/08/17 at 1657 . Lower Extremity - HPI Summary HPI Summary: This patient is a 36 year old female BIBA to [facility] accompanied by male hygiene coordinator with a chief complaint of left leg pain since approx. 0800 today. Patient states that her dog plopped up against her left leg and triggered her pain. Patient states that she has RSD. The pain is rated 9/10 in severity. Symptoms aggravated by movement. Symptoms alleviated by nothing. The patient additionally reports muscle spasms. Patient states that her legs feel like they re locked up. - History of Current Complaint Chief Complaint: EDExtremityLower Stated Complaint: LT LEG PAIN Time Seen by Provider: 02/08/17 16:11 Hx Obtained From: Patient Hx Last Menstrual Period: none s/p hysterectomy Onset of Pain: Immediate Onset/Duration: Hours Severity Currently: Severe Pain Intensity: 9 Pain Scale Used: 0-10 Numeric Timing: Constant Location: Is Discrete @ - left leg Associated Signs And Symptoms: Positive: Other - muscle spasms Aggravating Factor(s): Movement Alleviating Factor(s): Nothing - Allergies/Home Medications Allergies/Adverse Reactions: Allergies Allergy/AdvReac Type Severity Reaction Status Date / Time Codeine Allergy Severe Difficulty Verified 12/27/16 21:57 Breathing, hives Sulfa Drugs Allergy Severe Difficulty Verified 12/27/16 21:57 Breathing, hives CI Pigment Blue 63 Allergy See Comment Verified 12/27/16 21:57 [From Cymbalta] Duloxetine [From Cymbalta] Allergy See Comment Verified 12/27/16 21:57 Gabapentin AdvReac Headache Verified 12/27/16 21:57 ADHESIVE Allergy Rash And Uncoded 12/27/16 21:57 Itching Home Medications: Home Medications Ondansetron ODT TAB* [Zofran 4 MG Odt TAB*] 8 mg PO Q6H PRN 02/09/17 [History Confirmed 02/09/17] Sertraline* [Zoloft*] 50 mg PO BEDTIME 02/09/17 [History Confirmed 02/09/17] PMH/Surg Hx/FS Hx/Imm Hx Previously Healthy: No Endocrine/Hematology History: Denies: Hx Anticoagulant Therapy, Hx Diabetes, Hx Thyroid Disease Cardiovascular History: Denies: Hx Congestive Heart Failure, Hx Deep Vein Thrombosis, Hx Hypertension , Hx Myocardial Infarction, Hx Pacemaker/ICD Respiratory History: Denies: Hx Asthma, Hx Chronic Obstructive Pulmonary Disease (COPD), Hx Lung Cancer, Hx Pneumonia, Hx Pulmonary Embolism GI History: Denies: Hx Gall Bladder Disease, Hx Gastrointestinal Bleed, Hx Ulcer, Hx Urosepsis History: Reports: Hx Kidney Stones - No stones, but has history of stents. Denies: Hx Renal Disease Sensory History: Denies: Hx Hearing Aid Neurological History: Reports: Hx Migraine - In the past., Other Neuro Impairments/Disorders - CRPS Denies: Hx Dementia, Hx Seizures, Hx Transient Ischemic Attacks (TIA) Psychiatric History: Reports: Hx Anxiety Denies: Hx Depression, Hx Panic Disorder, Hx Schizophrenia, Hx Bipolar Disorder - Surgical History Surgery Procedure, Year, and Place: tubal ligation. Hysterectomy (ovaries in tact) 04/2014; left hip labrum 03/2015 Dr. Capps, [facility]; Total hip 08/2015. KIDNEY STENTS [id number] THAT WERE REMOVED - Immunization History Date of Tetanus Vaccine: UTD Date of Influenza Vaccine: NO Infectious Disease History: No Infectious Disease History: Denies: Hx Clostridium Difficile, Hx Hepatitis, Hx Human Immunodeficiency Virus (HIV), Hx of Known/Suspected MRSA, Hx Shingles, Hx Tuberculosis, Hx Known/ Suspected VRE, Hx Known/Suspected VRSA, History Other Infectious Disease, Traveled Outside the [place] in Last 30 Days - Family History Known Family History: Positive: Cardiac Disease, Hypertension - Social History Alcohol Use: Rare Hx Substance Use: No Substance Use Type: Reports: None Hx Tobacco Use: No Smoking Status (MU): Never Smoked Tobacco Review of Systems Negative: Fever Positive: Other - left leg pain, muscle spasms All Other Systems Reviewed And Are Negative: Yes Physical Exam - Summary Physical Exam Summary: Appearance: The patient is well-nourished in no acute distress and in no acute pain. Skin: The skin is warm and dry and skin color reflects adequate perfusion. HEENT: The head is normocephalic and atraumatic. The pupils are equal and reactive. The conjunctivae are clear and without drainage. Nares are patent and without drainage. Mouth reveals moist mucous membranes and the throat is without erythema and exudate. The external ears are intact. The ear canals are patent and without drainage. The tympanic membranes are intact. Neck: the neck is supple with full range of motion and non-tender. There are no carotid bruits. There is no neck vein distension. Respiratory: Chest is non-tender. Lungs are clear to auscultation and breath sounds are symmetrical and equal. Cardiovascular: Heart is regular rate and rhythm. There is no murmur or rub auscultated. There is no peripheral edema and pulses are symmetrical and equal. Abdomen: The abdomen is soft and non-tender. There are normal bowel sounds heard in all four quadrants and there is no organomegaly palpated. Musculoskeletal: There is no back tenderness noted. Extremities are non-tender with full range of motion. There is good capillary refill. There is no peripheral edema or calf tenderness elicited. Extremities: Decreased ROM in left leg secondary to pain Neurological: Patient is alert and oriented to person, place and time. The patient has symmetrical motor strength in all four extremities. Cranial nerves are grossly intact. Deep tendon reflexes are symmetrical and equal in all four extremities. Psychiatric: The patient has an appropriate affect and does not exhibit any anxiety or depression. Triage Information Reviewed: Yes Vital Signs On Initial Exam: Initial Vitals Temp Pulse Resp BP Pulse Ox 98.7 F 64 18 103/55 98 02/08/17 16:11 02/08/17 16:11 02/08/17 16:11 02/08/17 16:11 02/08/17 16:11 Vital Signs Reviewed: Yes - Bin Coma Scale Coma Scale Total: 15 Diagnostics - Vital Signs Vital Signs Temp Pulse Resp BP Pulse Ox 02/08/17 16:11 98.7 F 64 18 103/55 98 - Laboratory Lab Results: Lab Results 02/08/17 02/08/17 Range/Units 22:30 22:30 WBC 6.9 (3.5-10.8) 10^3/ul RBC 4.05 (4.0-5.4) 10^6/ul Hgb 13.2 (12.0-16.0) g/dl Hct 38 (35-47) % MCV 94 (80-97) fL MCH 33 H (27-31) pg MCHC 35 (31-36) g/dl RDW 12 (10.5-15) % Plt Count 225 (150-450) 10^3/ul MPV 9 (7.4-10.4) um3 Neut % (Auto) 55.9 (38-83) % Lymph % (Auto) 35.0 (25-47) % [place] % (Auto) 8.2 (1-9) % Eos % (Auto) 0.5 (0-6) % Baso % (Auto) 0.4 (0-2) % Absolute Neuts (auto) 3.8 (1.5-7.7) 10^3/ul Absolute Lymphs (auto) 2.4 (1.0-4.8) 10^3/ul Absolute Monos (auto) 0.6 (0-0.8) 10^3/ul Absolute Eos (auto) 0 (0-0.6) 10^3/ul Absolute Basos (auto) 0 (0-0.2) 10^3/ul Absolute Nucleated RBC 0 10^3/ul Nucleated RBC % 0.1 Sodium 138 (133-145) mmol/L Potassium 3.4 L (3.5-5.0) mmol/L Chloride 106 (101-111) mmol/L Carbon Dioxide 26 (22-32) mmol/L Anion Gap 6 (2-11) mmol/L BUN 8 (6-24) mg/dL Creatinine 0.67 (0.51-0.95) mg/dL Est GFR ( Amer) 128.1 (>60) Est GFR (Non-Af Amer) 99.6 (>60) BUN/Creatinine Ratio 11.9 (8-20) Glucose 92 (70-100) mg/dL Calcium 8.6 (8.6-10.3) mg/dL Total Bilirubin 1.10 H (0.2-1.0) mg/dL AST 20 (13-39) U/L ALT 26 (7-52) U/L Alkaline Phosphatase 39 (34-104) U/L C-Reactive Protein < 1.00 (< 5.00) mg/L Total Protein 6.5 (6.4-8.9) g/dL Albumin 3.9 (3.2-5.2) g/dL Globulin 2.6 (2-4) g/dL Albumin/Globulin Ratio 1.5 (1-3) Beta HCG, Quant 0.76 mIU/mL Result Diagrams: 02/08/17 22:30 02/08/17 22:30 Lab Statement: Any lab studies that have been ordered have been reviewed, and results considered in the medical decision making process. Lower Extremity Course/Dx - Course Course Of Treatment: Ms. Shah presented with a flair up of her RSD. She has had a lot of pain in her left hip and thigh for some time with intermittent flair ups and hs been referred to Dr. Samaniego whom she has not seen yet but has an appointment on the . I am treating her symptomatically with little success so far. - Diagnoses Provider Diagnoses: Acute pain of left lower extremity, RSD (reflex sympathetic dystrophy) - Physician Notifications Discussed Care Of Patient With: Dr. Husain at change of shift Discharge - Discharge Plan Condition: Stable Disposition: OTHER Discharge Disposition Comment: Signed out to Dr. Husain at change of shift The documentation as recorded by the Mt ray Tecjoon accurately reflects the service I personally performed and the decisions made by me, Kev Shah MD.
[2017-02-09] MEDS ORDERED: HYDROmorphone INJ* 2 MG/ML CARPUJECT SYRINGE IV SLOW PU ONE (17:07)
--- NOTE | 2017-02-09 17:26 | PN ---
Subjective Date of Service: 02/09/17 Interval History: Patient complains of severe persistent pain in leg, worse with any movement. Patient also has burning pain over the lateral hip which is at baseline. Patient states her leg keeps getting stuck and she can't move it very well and can't bear wait. Patient denies popping in her leg. Patient states that this has happened previously and it resolved with IV pain meds and muscle relaxants. Patient denies F/C, N/V, abdominal pain, Dysuria, diarrhea, constipation or other pain. Patient is ambivalent about rehab and has an appointment with a new traffic line painter later this week. Family History: Unchanged from Admission Social History: Unchanged from Admission Past Medical History: Unchanged from Admission Objective Active Medications: Acetaminophen (Tylenol Tab*) 650 mg PO Q6H PRN PRN Reason: FEVER/PAIN Baclofen (Lioresal Tab*) 10 mg PO TID [facility] Last Admin: 02/09/17 13:42 Dose: 10 mg Docusate Sodium (Colace Cap*) 200 mg PO BID [facility] Last Admin: 02/09/17 08:22 Dose: Not Given Melatonin (Melatonin (Nf)) 3 mg PO BEDTIME PRN; Protocol PRN Reason: Sleep Omeprazole (Prilosec Cap*) 20 mg PO DAILY@0600 [facility] Last Admin: 02/09/17 05:46 Dose: 20 mg Ondansetron HCl (Zofran Inj*) 4 mg IV Q6H PRN PRN Reason: NAUSEA Last Admin: 02/09/17 09:52 Dose: 4 mg Oxycodone HCl (Roxycodone Tab*) 10 mg PO Q4H PRN PRN Reason: PAIN Last Admin: 02/09/17 09:52 Dose: 10 mg Tramadol HCl (Ultram*) 50 mg PO Q6H PRN PRN Reason: PAIN Last Admin: 02/09/17 13:48 Dose: 50 mg Vital Signs - 8 hr 02/09/17 02/09/17 02/09/17 09:52 12:22 12:30 Temperature 97.7 F Pulse Rate 72 Respiratory 16 18 16 Rate Blood Pressure 113/75 (mmHg) O2 Sat by Pulse 98 Oximetry 02/09/17 02/09/17 02/09/17 13:42 13:48 15:06 Temperature 98.0 F Pulse Rate 81 Respiratory 16 16 20 Rate Blood Pressure 104/74 (mmHg) O2 Sat by Pulse 98 Oximetry 02/09/17 15:50 Temperature Pulse Rate Respiratory 16 Rate Blood Pressure (mmHg) O2 Sat by Pulse Oximetry Oxygen Devices in Use Now: None Appearance: Patient is a 36yo male who appears stated age and is sitting in the bed in moderate distress from pain. Eyes: No Scleral Icterus, PERRLA Ears/Nose/Mouth/Throat: NL Teeth, Lips, Gums, Clear Oropharnyx, Mucous Membranes Moist Neck: NL Appearance and Movements; NL JVP, Trachea Midline Respiratory: Symmetrical Chest Expansion and Respiratory Effort, Clear to Auscultation Cardiovascular: NL Sounds; No Murmurs; No JVD, RRR, No Edema Abdominal: NL Sounds; No Tenderness; No Distention, No Hepatosplenomegaly Lymphatic: No Cervical Adenopathy Extremities: No Edema, - - Scar on lateral hip, well healed. Pain limiting ROM with any movement of left leg. Least painful with flexion. Skin: No Rash or Ulcers, No Nodules or Sclerosis Neurological: Alert and Oriented x 3, NL Sensation, - - CN II-XII intact. Result Diagrams: 02/08/17 22:30 02/08/17 22:30 Additional Lab and Data: Lab Results Assess/Plan/Problems-Billing Assessment: Patient is a 36yo female with a PM significant for hysterectomy, CRPS, and hip replacement who presents with intractable pain in hip. Patient is still requiring IV pain medication and cannot care for herself at home. - Patient Problems (1) CRPS (complex regional pain syndrome) Current Visit: Yes Status: Acute Code(s): G90.50 - COMPLEX REGIONAL PAIN SYNDROME I, UNSPECIFIED SNOMED Code(s): 048760056 Comment: Intractable pain. Persists after IV pain medication and muscle relaxants. Able to work minimally with PT and transfer with earlier in day, but cannot put weight on left leg. Continue with PT, Baclofen, Morphine. Will consult pain management in AM. (2) S/P hip replacement Current Visit: Yes Status: Acute Code(s): Z96.649 - PRESENCE OF UNSPECIFIED ARTIFICIAL HIP JOINT SNOMED Code(s): 842979944 Comment: History of labral tear and left hip replacement. (3) Full code status Current Visit: Yes Status: Acute Code(s): Z78.9 - OTHER SPECIFIED HEALTH STATUS SNOMED Code(s): 606840061 (4) DVT prophylaxis Current Visit: Yes Status: Acute Code(s): XJC8492 - SNOMED Code(s): 184164472 Comment: Low Risk, SCDs Status and Disposition: Patient is admitted observation.
[2017-02-10] MEDS: oxyCODONE TAB* 5 MG TAB PO PRN ×3 (01:41→17:53)
[2017-02-10] MEDS: Ondansetron INJ* 2 MG/ML VIAL IV PRN ×3 (01:46→14:19)
[2017-02-10] MEDS: traMADol TAB* 50 MG PO PRN ×2 (03:40→08:22)
[2017-02-10] MEDS: Omeprazole CAP* 20 MG PO SCH (05:52)
[2017-02-10] MEDS: Baclofen TAB* 10 MG PO SCH ×4 (08:20→21:03)
[2017-02-10] MEDS: Docusate CAP* 100 MG PO SCH ×3 (08:21→21:04)
[2017-02-10] MEDS ORDERED: Diazepam SYRINGE* 5 MG/ML 2 ML SYRINGE (10 MG total) IV PRN (08:52)
[2017-02-10] MEDS: HYDROmorphone INJ* 2 MG/ML CARPUJECT SYRINGE IV SLOW PU PRN ×2 (09:29→14:20)
[2017-02-10] MEDS: NS 0.9% 1000 ML* 1,000 ML IV SCH (10:58)
--- NOTE | 2017-02-10 15:40 | PN ---
Subjective Date of Service: 02/10/17 Interval History: Patient continues to complain of pain in hip, both burning and shooting down to the hip and into the groin which is intermittently 10/10 and helped only moderately with pain medication. Patient also nauseated related to pain, which is better with Zofran, not helped by Reglan. Patient denies other complaints like N/V, abdominal pain, F/C, constipation, diarrhea, dysuria, or other pain. Family History: Unchanged from Admission Social History: Unchanged from Admission Past Medical History: Unchanged from Admission Objective Active Medications: Acetaminophen (Tylenol Tab*) 650 mg PO Q6H PRN PRN Reason: FEVER/PAIN Baclofen (Lioresal Tab*) 10 mg PO TID [facility] Last Admin: 02/10/17 14:56 Dose: Not Given Diazepam (Valium Syringe*) 2 mg IV Q8H PRN PRN Reason: spasm Docusate Sodium (Colace Cap*) 200 mg PO BID [facility] Last Admin: 02/10/17 09:28 Dose: Not Given Hydromorphone HCl (Dilaudid Inj*) 2 mg IV SLOW PU Q4H PRN PRN Reason: PAIN Last Admin: 02/10/17 14:20 Dose: 2 mg Sodium Chloride (Ns 0.9% 1000 Ml*) 1,000 mls @ 75 mls/hr IV PER RATE [facility] Last Admin: 02/10/17 10:58 Dose: 75 mls/hr Melatonin (Melatonin (Nf)) 3 mg PO BEDTIME PRN; Protocol PRN Reason: Sleep Omeprazole (Prilosec Cap*) 20 mg PO DAILY@0600 [facility] Last Admin: 02/10/17 05:52 Dose: 20 mg Ondansetron HCl (Zofran Inj*) 4 mg IV Q6H PRN PRN Reason: NAUSEA Last Admin: 02/10/17 14:19 Dose: 4 mg Oxycodone HCl (Roxycodone Tab*) 10 mg PO Q4H PRN PRN Reason: PAIN Last Admin: 02/10/17 05:52 Dose: 10 mg Prochlorperazine Edisylate (Compazine Inj*) 5 mg IV Q6H PRN PRN Reason: NAUSEA/VOMITING Vital Signs - 8 hr 02/10/17 02/10/17 02/10/17 07:56 08:00 08:14 Temperature 97.1 F Pulse Rate 78 Respiratory 18 16 Rate Blood Pressure 126/82 (mmHg) O2 Sat by Pulse 98 Oximetry 02/10/17 02/10/17 02/10/17 09:29 09:49 11:48 Temperature Pulse Rate Respiratory 17 16 16 Rate Blood Pressure (mmHg) O2 Sat by Pulse Oximetry 02/10/17 02/10/17 02/10/17 13:22 14:20 15:09 Temperature 97.9 F Pulse Rate 79 Respiratory 16 18 20 Rate Blood Pressure 124/76 (mmHg) O2 Sat by Pulse 97 Oximetry Oxygen Devices in Use Now: None Appearance: Patient is a 36yo female who appears stated age and is sitting in the bed in [facility]. Eyes: No Scleral Icterus, PERRLA Ears/Nose/Mouth/Throat: NL Teeth, Lips, Gums, Clear Oropharnyx, Mucous Membranes Moist Neck: NL Appearance and Movements; NL JVP, Trachea Midline Respiratory: Symmetrical Chest Expansion and Respiratory Effort, Clear to Auscultation Cardiovascular: NL Sounds; No Murmurs; No JVD, RRR, No Edema Abdominal: NL Sounds; No Tenderness; No Distention, No Hepatosplenomegaly Lymphatic: No Cervical Adenopathy Extremities: No Edema, No Clubbing, Cyanosis, - - Pain with any manipulation of left leg. Worse since yesterday. Skin: No Nodules or Sclerosis, - - Scar on left hip consistent with previous hip replacement. Neurological: Alert and Oriented x 3, - - Unable to test hip strength due to pain. Result Diagrams: 02/08/17 22:30 02/08/17 22:30 Additional Lab and Data: Lab Results Assess/Plan/Problems-Billing Assessment: Patient is a 36yo female with a PM significant for hysterectomy, CRPS, and hip replacement who presents with intractable pain in hip. Patient is still requiring IV pain medication and cannot care for herself at home. - Patient Problems (1) CRPS (complex regional pain syndrome) Current Visit: Yes Status: Acute Code(s): G90.50 - COMPLEX REGIONAL PAIN SYNDROME I, UNSPECIFIED SNOMED Code(s): 856607781 Comment: Intractable pain. Persists after IV pain medication and muscle relaxants. Unable to work with PT able to transfer, but unable to walk or care for self. Continue with PT, Baclofen, Morphine, dilaudid. Pain management consult pending. (2) S/P hip replacement Current Visit: Yes Status: Acute Code(s): Z96.649 - PRESENCE OF UNSPECIFIED ARTIFICIAL HIP JOINT SNOMED Code(s): 555957392 Comment: History of labral tear and left hip replacement. (3) Nausea and vomiting Current Visit: Yes Status: Acute Code(s): R11.2 - NAUSEA WITH VOMITING, UNSPECIFIED SNOMED Code(s): 59547656 Comment: Unable to take PO pills or food. Started on replacement fluids to avoid dehydration. IV Zofran and Compazine. Will monitor labs. (4) Full code status Current Visit: Yes Status: Acute Code(s): Z78.9 - OTHER SPECIFIED HEALTH STATUS SNOMED Code(s): 044966375 (5) DVT prophylaxis Current Visit: Yes Status: Acute Code(s): FHP5060 - SNOMED Code(s): 250507543 Comment: Low Risk, SCDs Status and Disposition: Patient is admitted observation.
[2017-02-10] MEDS: PROCHLORPERAZINE INJ 5 MG/ML 2 ML VIAL IV PRN (15:45)
[2017-02-11] MEDS: NS 0.9% 1000 ML* 1,000 ML IV SCH (01:03)
[2017-02-11] MEDS: Omeprazole CAP* 20 MG PO SCH (06:04)
[2017-02-11] MEDS: Ondansetron INJ* 2 MG/ML VIAL IV PRN (07:21)
[2017-02-11] MEDS: oxyCODONE TAB* 5 MG TAB PO PRN ×2 (07:22→14:30)
[2017-02-11 07:35] VITALS: BP 123/77
[2017-02-11] MEDS: PROCHLORPERAZINE INJ 5 MG/ML 2 ML VIAL IV PRN (09:32)
[2017-02-11] MEDS: Docusate CAP* 100 MG PO SCH (09:33)
[2017-02-11] MEDS: Baclofen TAB* 10 MG PO SCH ×2 (09:33→14:30)
[2017-02-11 09:38] LABS: ABS Basophils 0 10^3/ul (0-0.2); ABS Eosinophils 0 10^3/ul (0-0.6); ABS Lymphocytes 1.5 10^3/ul (1.0-4.8); ABS Monocytes 0.6 10^3/ul (0-0.8); ABS Neutrophils 5.1 10^3/ul (1.5-7.7); ABS Nucleated RBC 0 10^3/ul; Eosinophil % 0.3 % (0-6); Hematocrit 37 % (35-47); Hemoglobin 13.3 g/dl (12.0-16.0); Lymphocyte % 20.8 % (25-47); Mean Corpuscular HGB Conc 36 g/dl (31-36); Mean Corpuscular Hemoglobin 33 pg (27-31); Mean Corpuscular Volume 93 fL (80-97); Mean Platelet Volume 9 um3 (7.4-10.4); Nucleated Red Blood Cells % 0; Platelet Count 236 10^3/ul (150-450); Red Cell Distribution Width 12 % (10.5-15); White Blood Count 7.2 10^3/ul (3.5-10.8)
[2017-02-11] MEDS ORDERED: Diazepam TAB(*) 5 MG PO PRN (10:56)
[2017-02-11] MEDS ORDERED: Heparin VIAL(*) 5000 UNITS/ML VIAL (FIVE THOUSAND) SUBCUT SCH (14:00)
[2017-02-11] MEDS ORDERED: Nortriptyline CAP* 10 MG PO SCH (18:00)
--- NOTE | 2017-02-11 18:03 | CONSULT ---
Consult Consult: INPATIENT PAIN CONSULTATION Taya Shah is a 36 year old female. According to the patient, in April, she had a hysterectomy for continuous uterine bleeding during her cycle. She had very heavy menses, and then would continue to bleed. When she woke up from surgery, she had severe burning pain in her left thigh. The PICKING BELT OPERATOR working for her regulatory leader was unsure what caused the pain. She went to another regulatory leader after discharge from the hospital and that doctor felt the pain was coming from her left hip. She had an MRI of the hip showing a labral tear. She was seen by an orthopedic surgeon in [place], and was eventually sent to [facility] in [place]. She saw Dr. Yadiel Barreto. She had arthroscopic surgery, and her pain worsened. 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 She underwent the left LUISA by Dr. Barreto, but her pain worsened after that surgery. She was tried on Cymbalta, for probable CRPS. She got palpitations. She was tried on gabapentin. It gave her severe headaches. She tried Elavil. It made her sleepy. She moved to [place] and changed primary care doctors. She was sent to a Pain Clinic at [facility]. She had an injection, which made her pain worse. She was referred to Dr. Soy Samaniego but has not seen him yet. She had her pain greatly increase recently after her dog jumped on the bed and hit her hip. She was hospitalized and had a lot of trouble mobilizing. I was asked to see her. PAST MEDICAL HISTORY: As above. Fractured right thumb when space heater hit it, GERD ALLERGIES: sulfa Current Medications Acetaminophen (Tylenol Tab*) 650 mg PO Q6H PRN PRN Reason: FEVER/PAIN Baclofen (Lioresal Tab*) 10 mg PO TID [facility] Last Admin: 02/11/17 14:30 Dose: 10 mg Diazepam (Valium Tab(*)) 5 mg PO Q8H PRN PRN Reason: spasm Last Admin: 02/11/17 15:57 Dose: 5 mg Docusate Sodium (Colace Cap*) 200 mg PO BID [facility] Last Admin: 02/11/17 09:33 Dose: 200 mg Heparin Sodium (Porcine) (Heparin Vial(*)) 5,000 units SUBCUT Q8HR [facility] Last Admin: 02/11/17 14:30 Dose: 5,000 units Melatonin (Melatonin (Nf)) 3 mg PO BEDTIME PRN; Protocol PRN Reason: Sleep Nortriptyline HCl (Pamelor Cap*) 10 mg PO BEDTIME [facility] Omeprazole (Prilosec Cap*) 20 mg PO DAILY@0600 [facility] Last Admin: 02/11/17 06:04 Dose: 20 mg Ondansetron HCl (Zofran Inj*) 4 mg IV Q6H PRN PRN Reason: NAUSEA Last Admin: 02/11/17 07:21 Dose: 4 mg Oxycodone HCl (Roxycodone Tab*) 10 mg PO Q4H PRN PRN Reason: PAIN Last Admin: 02/11/17 14:30 Dose: 10 mg SOCIAL HISTORY: Non smoker, non drinker. Disabled since 2014. 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 No temperature changes on left thigh. No swelling. Some increased sensitivity to touch, left thigh NEUROLOGIC: Alert, oriented. Hypersensitive, left thigh. Normal strength, left leg. Otherwise normal strength ASSESSMENT/PLAN: 1. CRPS of left leg: She would benefit from a trial of Lyrica. This would require a prior auth from [employer]. I think Dr. Samaniego will be able to do this. She has failed gabapentin. She normally takes Zoloft. I don't want to add Effexor to Zoloft. Although she did not tolerate Elavil, she is unclear of the dose. I recommend trying low dose Pamelor at bedtime. She is set for discharge tonight, she will see Dr. Samaniego on Feb 17. She can go home with low dose Pamelor and a small amount of Oxycodone. Thanks for the consult.
--- NOTE | 2017-02-12 19:53 | DS ---
C: Dr. Charlton * DISCHARGE SUMMARY: DATE OF ADMISSION: 02/09/17 DATE OF DISCHARGE: 02/11/17 PRIMARY CARE PROVIDER: Dr. Charlton. MY ATTENDING WHILE IN THE HOSPITAL: Dr. Sunny Walton * (DICTATED BY MELO RANDHAWA) CONSULTING PROVIDER: Dr. Branden Rosa. PRIMARY DISCHARGE DIAGNOSES: 1. Complex regional pain syndrome of the left leg. 2. Nausea. 3. Vomiting. 4. Intractable pain. SECONDARY DISCHARGE DIAGNOSES: 1. Fracture of right forearm. 2. Straight biliary stenting. 3. Left hip replacement after labral tear. 4. Hysterectomy. STUDIES DONE WHILE IN THE HOSPITAL: None. MEDICATIONS AT DISCHARGE: 1. Ondansetron ODT 8 mg p.o. q.6 hours as needed. 2. Sertraline 50 mg p.o. at bedtime. 3. Tylenol 650 mg p.o. q.6 hours as needed. 4. Baclofen 10 mg p.o. t.i.d. 5. Valium 5 mg p.o. q.8 hours as needed. 6. Docusate 200 mg p.o. b.i.d. 7. Nortriptyline 10 mg p.o. at bedtime. 8. Oxycodone 10 mg p.o. q.6 hours as needed. New medications at discharge: 1. Tylenol. 2. Baclofen. 3. Valium. 4. Docusate. 5. Nortriptyline. 6. Oxycodone. Medications discontinued at discharge: None. HOSPITAL COURSE: This is a brief summary of the patient's presentation. For more details, please see the history and physical from Dr. Amadeo Nails on 02/09/17. In brief, the patient is a 36-year-old female with a past medical history significant for the above, who presented to the emergency department several times in the past 2 months for pain in her left hip which has been ongoing for years. At this time, it was most excruciating it has ever been and the patient felt like her leg was spasming and locking up and she was unable to get any relief or use that leg for anything. The patient was admitted to the hospital and continued on oxycodone and baclofen. The patient had initially got relief from oxycodone but her pain escalated throughout the course of her hospitalization. The patient also had intractable nausea and vomiting related to her pain and her pain medication. The patient was unable to take p.o. medications. The patient was given Zofran IV with good relief initially but this eventually stopped working as well. The patient had to be switched to IV pain medication for her 11/17 intractable pain in her hip. Dr. Branden Rosa of Pain Medicine was consulted to see her, but was unable to be see her until . The patient improved greatly from 02/10/17 to 02/11/17, requiring less pain medications, being able to tolerate p.o. meds, and vomiting less profusely. The patient had no laboratory abnormalities except for low potassium on admission. This was also the case on the day of discharge, , except for carbon dioxide 21 and magnesium of 1.6. The patient had an appointment with Dr. Samaniego of Pain Management on 02/17/17. The patient has failed many trials of different medications for neuropathic pain. The patient was started on Pamelor for discharge from the hospital. The patient did not tolerate Advil but a different ELECTRICAL PROSPECTING SUPERVISOR would possibly have different effect. The patient should follow up with Dr. Samaniego as scheduled. The patient was unable to be safely transferred initially due to her inability to move without excruciating pain; however, given the patient's improved mobility, the patient will be able to transfer to a standard bed from her bed to her rolling walking and she uses her rolling walker to get around. The patient required 1000 units IV fluids while she was in the hospital due to inability to tolerate p.o. while she was vomiting. The patient had no metabolic abnormalities associated with this. PHYSICAL EXAMINATION ON THE DAY OF DISCHARGE: General: The patient is a 36- year- old female who appears stated age and sitting comfortably in bed in no acute distress. Vital Signs: At the time of discharge, temperature 98.4, pulse rate 97, respiratory rate 17, oxygen saturation 98% on room air, blood pressure 123/77. Cardiac: Regular rate and rhythm. No clicks, murmurs, gallops , or rubs. Pulses 2+ in bilateral dorsalis pedis, posterior tibialis, and radial areas. HEENT: Head normocephalic, atraumatic. Sclerae anicteric. No conjunctival injection. Nasal mucosa moist. Oral mucosa moist. Pharynx erythematous only occurs from vomiting. Respiratory: Clear to auscultation bilaterally. No wheezes, rales, or rhonchi. Good air exchange bilaterally. Abdomen: Soft, nontender, nondistended. Bowel sounds present, normoactive in all 4 quadrants. No hepatosplenomegaly. No abdominal bruit auscultated. Genitourinary: No suprapubic tenderness, no CVA tenderness. Skin: Clean, dry , intact. There is a surgical incision consistent with a left hip arthroplasty. No other rash. Neuro: Cranial nerves II through XII intact. Strength preserved in the upper extremity, pain with any movement of the left lower extremity, burning pain over the left lateral hip. No numbness or tingling. The patient has full passive range of motion with extreme. Again, the patient has weakness related to pain in this leg. The patient has full strength in the right leg. The patient has no loss of bowel or bladder control or other signs of spinal cord pathology. Psychiatric: Pleasant, cooperative. LABORATORY DATA: On the day of discharge, white blood cell count 7.2, red blood cell count 4.0, Hemoglobin 13.3, MCH 33, platelet count 236. Sodium 135, potassium 3.6, chloride 104, carbon dioxide 21, anion gap 10, BUN 8, creatinine 0.57, glucose 67, calcium 8.7, magnesium 1.6. Other laboratories of note from hospitalization, hCG 0.76, CRP less than 1, total bilirubin 1.1. DISCHARGE PLAN: The patient will be discharged to home with her as support. They will install a ramp, so she can get in and out of home in a timely manner in case of emergency and returning of significant pain. The patient is using a rolling walker as she is unable to move her leg adequately. The patient should follow up with primary care provider within 1 week for general medical management. The patient should follow up with Dr. Samaniego of Pain Management as scheduled. The patient should follow up with her orthopedist or primary care doctor for the removal of her cast. She will take nortriptyline, but the patient should return to hospital for alarming symptoms such as chest pain, shortness of breath, or unable to take p.o. intake for significant period of time. The patient should have a regular unrestricted diet and engage in activity as tolerate. TIME SEEN: Approximately 60 minutes was spent on this discharge, 30 of which was spent [id number] with the patient obtaining history and physical and discussing treatment plan. MELO RANDHAWA [id number]/CPS #: [id number] JUANY
== END 2017-02-11 18:30 | disposition home or self-care (01) ==
LOC: ED 16:02 → MED 02-09 01:06
PROVIDERS: ADMIT Hospitalist; ATTEND Internal Medicine
DX: G90.522 Complex regional pain syndrome I of left lower limb (principal); Z79.899 Other long term (current) drug therapy; Z88.8 Allergy status to other drugs, medicaments and biological substances; Z96.649 Presence of unspecified artificial hip joint
CPT/HCPCS: 36415; 80048; 80053; 83735; 84702; 85025; 86140; 96372; 96374; 96375; 96376; 99285; A9270-GY; G0378; J0780; J1170; J1644; J1885; J2060; J2405; J2765

== ENCOUNTER 2017-08-24 11:03 | Emergency (ER) | payer SELFPAY ==
[2017-08-24] MEDS ORDERED: Ketorolac INJ* 30 MG/ML 1 ML VIAL IV ONE (11:29)
[2017-08-24] MEDS ORDERED: NS 0.9% 1000 ML* 1,000 ML IV ONE (11:29)
[2017-08-24] MEDS ORDERED: Ondansetron INJ* 2 MG/ML VIAL IV ONE (11:29)
--- NOTE | 2017-08-24 11:40 | ED ---
Lower Extremity - HPI Summary HPI Summary: This is flor Chopra documenting for attending Young Wheeler MD. This patient is a 37 year old F presenting to [facility] accompanied by a male with a chief complaint of burning, stabbing left sided hip pain since last night at 9 :30 PM. Pt was bending over in her bathroom when she heard a pop in her left hip and has had pain consistently since. Pt is already prescribed medication for this pain but she cannot take it without nausea and vomiting. The patient rates the pain 10/10 in severity. Symptoms aggravated by movement of her left hip and leg. Patient reports nausea, muscle spasms, numbness in left toes, stabbing and burning pain in left leg, vomiting, and some upper back pain. Patient denies weakness, abd pain, or sciatic pain. PMHx of two left hip surgeries, including a replacement in 2015, and a hysterectomy. Pt gets these symptoms intermittently, with the last episode occurring in February. - History of Current Complaint Chief Complaint: EDExtremityLower Stated Complaint: LT LEG PAIN Time Seen by Provider: 08/24/17 11:13 Hx Obtained From: Patient Hx Last Menstrual Period: none s/p hysterectomy Mechanism Of Injury: Other - bending Onset of Pain: Immediate Onset/Duration: Hours - 9:30 PM last night Severity Initially: Severe Severity Currently: Severe Pain Intensity: 10 Pain Scale Used: 0-10 Numeric Timing: Constant Location: Is Discrete @ - left hip and leg Character Of Pain: Sharp, Burning Associated Signs And Symptoms: Positive: Other - vomiting. Negative: Fever, Weakness Aggravating Factor(s): Ambulation, Movement - Allergies/Home Medications Allergies/Adverse Reactions: Allergies Allergy/AdvReac Type Severity Reaction Status Date / Time codeine Allergy Severe Difficulty Verified 08/24/17 11:20 Breathing Sulfa (Sulfonamide Allergy Severe Difficulty Verified 08/24/17 11:20 Antibiotics) Breathing adhesive Allergy Rash And Verified 08/24/17 11:20 Itching duloxetine [From Cymbalta] Allergy See Comment Verified 08/24/17 11:20 gabapentin Allergy Headache Verified 08/24/17 11:20 Home Medications: Home Medications Dextromethorphan Polistirex [Delsym] 5 ml PO Q6H PRN 08/24/17 [History Confirmed 08/24/17] Divalproex DR RUDD(*) [Suzy PELAYO TAB(*)] 250 mg PO BID 08/24/17 [History Confirmed 08/24/17] Ergocalciferol (Vitamin D2) [Vitamin D2] 50,000 unit PO WEEKLY 08/24/17 [ History Confirmed 08/24/17] Naltrexone 4.5 ml PO DAILY 08/24/17 [History Confirmed 08/24/17] SUMAtriptan TAB* [Imitrex TAB*] 50 mg PO SEE INSTRUCTIONS 08/24/17 [History Confirmed 08/24/17] PMH/Surg Hx/FS Hx/Imm Hx Endocrine/Hematology History: Denies: Hx Anticoagulant Therapy, Hx Diabetes, Hx Thyroid Disease Cardiovascular History: Denies: Hx Congestive Heart Failure, Hx Deep Vein Thrombosis, Hx Hypertension , Hx Myocardial Infarction, Hx Pacemaker/ICD Respiratory History: Denies: Hx Asthma, Hx Chronic Obstructive Pulmonary Disease (COPD), Hx Lung Cancer, Hx Pneumonia, Hx Pulmonary Embolism GI History: Denies: Hx Gall Bladder Disease, Hx Gastrointestinal Bleed, Hx Ulcer, Hx Urosepsis History: Reports: Hx Kidney Stones - No stones, but has history of stents. Denies: Hx Renal Disease Musculoskeletal History: Reports: Hx Arthritis - hips, Other Musculoskeletal History - Buldging disk in back, no neck curve, two S's in spine Sensory History: Reports: Hx Contacts or Glasses Denies: Hx Hearing Aid Opthamlomology History: Reports: Hx Contacts or Glasses Neurological History: Reports: Hx Headaches, Hx Migraine - In the past., Hx Nerve Disease - RSD (CRPS), Other Neuro Impairments/Disorders - CRPS Denies: Hx Dementia, Hx Seizures, Hx Transient Ischemic Attacks (TIA) Psychiatric History: Reports: Hx Anxiety Denies: Hx Depression, Hx Panic Disorder, Hx Schizophrenia, Hx Bipolar Disorder - Surgical History Surgery Procedure, Year, and Place: tubal ligation. Hysterectomy (ovaries in tact) 04/2014; left hip labrum 03/2015 Dr. Capps, [facility]; Total hip 08/2015. KIDNEY STENTS [id number] THAT WERE REMOVED - Immunization History Date of Tetanus Vaccine: UTD Date of Influenza Vaccine: NO Infectious Disease History: No Infectious Disease History: Denies: Hx Clostridium Difficile, Hx Hepatitis, Hx Human Immunodeficiency Virus (HIV), Hx of Known/Suspected MRSA, Hx Shingles, Hx Tuberculosis, Hx Known/ Suspected VRE, Hx Known/Suspected VRSA, History Other Infectious Disease, Traveled Outside the [place] in Last 30 Days - Family History Known Family History: Positive: Cardiac Disease, Hypertension - Social History Alcohol Use: Rare Hx Substance Use: No Substance Use Type: Reports: None Hx Tobacco Use: No Smoking Status (MU): Never Smoked Tobacco Review of Systems Negative: Fever Positive: Vomiting, Nausea. Negative: Abdominal Pain Positive: Decreased ROM - left hip and leg are tense, Other - some back pain, muscle spasms in left hip and leg Positive: Numbness - left toes. Negative: Weakness All Other Systems Reviewed And Are Negative: Yes Physical Exam - Summary Physical Exam Summary: General: Moderate to severe pain distress. Pt laying on the right side in the position, hips flex 45 degrees. Pt is sitting in this position because it causes the least amount of pain. Skin: warm, color reflects adequate perfusion, dry Head: normal Eyes: EOMI, GILBERT ENT: normal Neck: supple, nontender Respiratory: CTA, breath sounds present Cardiovascular: RRR Abdomen: soft, nontender Bowel: present Musculoskeletal: Strength/ROM intact. LEs have normal refill. Neurological: sensory/motor intact, A&O x3 Psychological: affect/mood appropriate Triage Information Reviewed: Yes Vital Signs On Initial Exam: Initial Vitals Temp Pulse Resp BP Pulse Ox 98.9 F 83 16 102/85 99 08/24/17 11:05 08/24/17 11:05 08/24/17 11:05 08/24/17 11:05 08/24/17 11:05 Vital Signs Reviewed: Yes Diagnostics - Vital Signs Vital Signs Temp Pulse Resp BP Pulse Ox 08/24/17 11:05 98.9 F 83 16 102/85 99 - Laboratory Result Diagrams: 08/24/17 11:48 08/24/17 11:48 Lab Statement: Any lab studies that have been ordered have been reviewed, and results considered in the medical decision making process. - CT Pelvis CT Interpretation Completed By: Radiologist - No evidence of periprosthetic fracture. No loosening is noted. Atrophy of the left psoas muscle. This is stable since previous exam. ER Physician reviewed this report. Lumbar Spine CT Interpretation Completed By: Radiologist - No fracture of the lumbar spine. Minimal degenerative disc disease at L4-L5 and L5-S1 flattening the thecal sac. ER Physician reviewed this report. Re-Evaluation - Re-Evaluation First Eval Re-Evaluation Time: 12:23 Change: Unchanged Comment: Pt reports that her pain has not improved. Lower Extremity Course/Dx - Course Course Of Treatment: PAIN NOT CONTROLLED IN THE ED. DISCUSSED RESULTS WITH THE PATIENT. HOSPITALIST CONSULTED FOR ADMISSION. THEY SPOKE WITH THE PATIENT'S PAIN MANAGEMENT TEAM. DISCHARGE HOME WITH VALIUM RX. - Diagnoses Provider Diagnoses: Left hip pain Discharge - Sign-Out/Discharge Documenting (check all that apply): Patient Departure - Discharge Plan Condition: Stable Disposition: HOME Prescriptions: Diazepam TAB(*) [Valium TAB(*)] 5 mg PO TID PRN #15 tab MDD 3 PRN Reason: Pain Patient Education Materials: Hip Pain (ED) Referrals: Malka Charlton MD [Primary Care Provider] - Additional Instructions: FOLLOW UP WITH YOUR DOCTOR. RETURN TO THE EMERGENCY DEPARTMENT FOR ANY WORSENING OF YOUR CONDITION OR QUESTIONS OR CONCERNS. - Billing Disposition and Condition Condition: STABLE Disposition: Home
[2017-08-24] MEDS ORDERED: LORazepam INJ* 2 MG/ML 1 ML VIAL IV ONE (11:44)
[2017-08-24 11:56] LABS: ABS Basophils 0.1 10^3/ul (0-0.2); ABS Eosinophils 0 10^3/ul (0-0.6); ABS Lymphocytes 1.4 10^3/ul (1.0-4.8); ABS Monocytes 0.4 10^3/ul (0-0.8); ABS Nucleated RBC 0 10^3/ul; Eosinophil % 0.9 % (0-6); Hematocrit 40 % (35-47); Hemoglobin 13.9 g/dl (12.0-16.0); Lymphocyte % 27.9 % (25-47); Mean Corpuscular HGB Conc 34 g/dl (31-36); Mean Corpuscular Hemoglobin 33 pg (27-31); Mean Corpuscular Volume 95 fL (80-97); Mean Platelet Volume 8.8 um3 (7.4-10.4); Nucleated Red Blood Cells % 0.1; Platelet Count 216 10^3/ul (150-450); Red Blood Count 4.28 10^6/ul (4.00-5.40); Red Cell Distribution Width 12 % (10.5-15); White Blood Count 4.9 10^3/ul (3.5-10.8)
[2017-08-24 12:04] LABS: INR 0.98 (0.77-1.02)
[2017-08-24 12:21] LABS: EGFR Non-African American 88.3 (>60)
--- NOTE | 2017-08-24 13:09 | RAD ---
Indication: Left leg pain. CT of the lumbar spine was obtained in the axial plane. Sagittal and coronal reconstructed images were obtained. The vertebral bodies appear normal in height. No evidence of compression fracture is noted. Sacroiliac joints are unremarkable. At L5-S1 there appears to be minimal broad-based protrusion flattening the thecal sac. No evidence of nerve root impingement is noted. The intervertebral foramen appear patent. Mild facet arthropathy is noted. At L4-L5 minimal broad-based protrusion flattens the thecal sac. No central or foraminal stenosis is noted. At L3-L4, L2-L3 and L1-L2 the disc spaces appear unremarkable. No evidence of thecal sac or nerve root impingement is noted. IMPRESSION: No fracture of the lumbar spine. Minimal degenerative disc disease at L4-L5 and L5-S1 flattening the thecal sac.
--- NOTE | 2017-08-24 13:13 | RAD ---
Indication: Left-sided hip pain. CT of the pelvis was performed without IV contrast. Coronal and sagittal reconstructed images were obtained. The pelvic ring is intact. There is no evidence of fracture noted. The left hip demonstrates bipolar left hip replacement. No evidence of periprosthetic fracture is noted. No evidence of periprosthetic lucency is noted. Hardware appears intact. No pelvic masses are identified. The muscles around the hip demonstrates no evidence of edema or abnormal swelling. There is atrophy of the left psoas muscle. Findings are unchanged from previous exam of October 09, 2016. IMPRESSION: No evidence of periprosthetic fracture. No loosening is noted. Atrophy of the left psoas muscle. This is stable since previous exam.
[2017-08-24] MEDS ORDERED: Ondansetron INJ* 2 MG/ML VIAL IV PRN (15:07)
[2017-08-24] MEDS ORDERED: Acetaminophen TAB* 325 MG PO PRN (15:07)
[2017-08-24] MEDS ORDERED: Diazepam SYRINGE* 5 MG/ML 2 ML SYRINGE (10 MG total) IV ONE (15:29)
[2017-08-24] MEDS ORDERED: Diazepam INJ (NF) 5 MG/ML 10 ML VIAL (50 MG TOTAL) IV ONE (16:00)
[2017-08-24 16:57] VITALS: BP 105/56
--- NOTE | 2017-08-24 19:46 | CONS ---
CONSULTATION REPORT: DATE OF ADMISSION: To the emergency room 08/24/17. DATE OF CONSULT: 08/24/17 - EMERGENCY DEPT. PROVIDER: Radha Mallory NP ATTENDING PHYSICIAN: Dr. Wheeler. CONSULTING PHYSICIAN: Dr. Irving Treviño. REASON FOR CONSULT: Intractable pain. HISTORY OF PRESENT ILLNESS: Ms. Shah is a 37-year-old female with a past medical history significant for CRPS of the left hip and leg. The patient reports that she was diagnosed with CRPS a few years after she had a hysterectomy. She reports that she woke up from her hysterectomy surgery with severe left leg pain and hip pain and has had progressive worsening of left hip and leg pain since. The patient has also had found to have a labral tear on the left that was repaired. She continued to have left leg pain and left hip pain, after the repair that became worse. She then was found that she needed to have a total hip replacement. She did undergo a total left hip replacement. Again, her pain is becoming progressively worse. She is currently followed by Pain Management at [facility] with nurse practitioner, Raya Vu. She does report that her next scheduled appointment with Pain Management is in September. 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 She heard a pop in her left hip and since then has had severe sharp pain in her left hip and leg. She reports that the pain radiates from her left hip down her leg. It is a sharp pain with constant burning. She does have tingling in her toes on and off. She does report the pain has increased with flexion and extension and that she is unable to bear any weight on that leg. Due to her intractable pain , we were asked to see and evaluate her by emergency room physician. While in the emergency room, the patient had routine lab work drawn and CT of the lumbar spine, which showed mild disk herniation with no impingement. PAST MEDICAL HISTORY: Significant for CRPS. PAST SURGICAL HISTORY: 1. Left total hip replacement. 2. Hysterectomy. 3. Labral tear repair. 4. Appendectomy. MEDICATIONS: Home medications include: 1. Naltrexone 4.5 mg per day. 2. Imitrex 50 mg as needed for migraines. 3. Depakote 250 mg p.o. b.i.d. 4. Zofran as needed for nausea. FAMILY HISTORY: The patient reports that her father has a history of an VA at age 22. Mother with a history of stroke. Grandmother with a history of stroke. Father with a history of hypertension. Diabetes with her grandmother. No reported cancer. SOCIAL HISTORY: She denies any tobacco, alcohol, or illicit drug use. She is currently engaged and lives. Her surrogate decision maker is her fiance, Roel Licea. His phone number is [phone]. She is a full code. REVIEW OF SYSTEMS: There has been no documented fever. No unintended weight loss. No chest pain. No edema. No cough, hemoptysis, or shortness of breath. She does report nausea and vomiting with her pain. She denies any diarrhea or abdominal pain. Denies any gross hematuria or dysuria. Denies any weakness or sensory loss. Denies any visual complaints. She denies any dysphagia. She does complain of chronic arthralgias and myalgias. Denies any rashes or lesions. She does report some depression and anxiety and is currently not taking any medications. PHYSICAL EXAM: Vital Signs: Blood pressure was 106/61, heart rate is 63, respirations 20, O2 saturation was 99% on room air, temperature was 98.9. General: Ms. Shah is a 37-year-old female. She appears to be in mild distress , resting on the stretcher in the emergency room. Neurologic: She is alert and oriented x3. She is able to move all extremities. She does have severe pain when moving her left lower extremity. Pedal pulses are +2 bilaterally. HEENT: Head is atraumatic, normocephalic. Eyes: EOMs are intact. Sclerae are anicteric and not pale. Oral mucosa appears to be moist. There is no oropharyngeal erythema. Neck is supple. Lungs are clear to auscultation bilaterally. No wheezes, rales, or rhonchi. Cardiac: S1, S2. Regular rate and rhythm. There are no murmurs, rubs, or gallops. Abdomen is soft and nontender. Bowel sounds are present x4. Skin is intact. DIAGNOSTIC STUDIES/LAB DATA: WBCs were 4.9, RBCs 4.28, hemoglobin was 13.9, hematocrit was 40, platelet count 216. INR was 0.98. Sodium 140, potassium 3.6 , chloride 107, carbon dioxide was 24, anion gap was 9, BUN 13, creatinine 0.74 , glucose was 92, lactic acid 0.8, calcium 9.1. Total bilirubin was 1.20. Valproic acid was less than 13. CT of the pelvis, no evidence of periprosthetic fracture. No loosening is noted. Atrophy of the left psoas muscle and this is stable since the previous exam. She had a CT of the lumbar spine. Radiologist's impression: Minimal degenerative disk disease at L4-L5 and L5-S1 with flattening of the thecal sac. L4-L5 minimal broad-based protrusions, flattening of the thecal sac. No central or foraminal stenosis is noted. L3-L4, L2-L3, and L1-L2, the disk spaces appear to be unremarkable. No evidence of thecal sac or nerve root impingement is noted. L5- S1, there appears to be minimal broad-based protrusion, flattening of the thecal sac. No evidence of nerve root impingement is noted. The intervertebral foramen appears to be patent. Mild facet arthropathy is noted. ASSESSMENT AND PLAN: Ms. Shah is a 37-year-old female with a past medical history significant for complex regional pain syndrome, who presented to the emergency room today with an exacerbation of her chronic regional pain syndrome. We were asked to see and evaluate her for admission due to intractable pain. Our recommendations are as follows: Intractable pain to the left leg associated with chronic regional pain syndrome. I did call and speak to her design painter, Dr. Mendieta at [facility], who recommended IV lidocaine infusion or IV ketamine infusion at 1 mg/kg. They also recommended lorazepam IV and Valium p.o. for home for pain management. I did speak to pharmacy at [facility] and lidocaine and ketamine infusions are not available. The patient was informed of this and at this time, the patient would like to proceed with trying Valium. She does report to me that if the Valium does not work, she would like to be discharged and would like to follow up with her own design painter for evaluation and possible lidocaine or ketamine infusions. I did discuss this with Dr. Wheeler who is in agreement with a trial a dose of Valium 5 mg IV and will discharge the patient pending her response. TIME SPENT: Time spent on this consultation was approximately 45 minutes, greater than half of that time was spent with the patient at the bedside reviewing events leading and thus far to her hospitalization, performing my physical exam, and reviewing my plan of care. I have discussed this with my attending, Dr. Irving Treviño, he is in agreement with my plan. I have also discussed this with Dr. Wheeler from the emergency room, who is in agreement with this plan and further manage her care. RADHA MALLORY, KEVIN [id number]/[facility] #: [id number] JUANY
[2017-08-24] MEDS ORDERED: Divalproex DR TAB(*) 250 MG PO SCH (21:00)
[2017-08-25] MEDS ORDERED: NALTREXONE PO SCH (09:00)
== END 2017-08-24 16:59 | disposition home or self-care (01) ==
LOC: ED 11:03 → UNDOADMOB 15:07 → MED 15:07 → ED 16:59
DX: M25.552 Pain in left hip (principal); M51.36 Other intervertebral disc degeneration, lumbar region; M62.838 Other muscle spasm; R20.0 Anesthesia of skin; R11.2 Nausea with vomiting, unspecified; G43.909 Migraine, unspecified, not intractable, without status migrainosus; F41.9 Anxiety disorder, unspecified; Z87.442 Personal history of urinary calculi; Z96.642 Presence of left artificial hip joint; Z88.5 Allergy status to narcotic agent; Z88.2 Allergy status to sulfonamides; Z88.8 Allergy status to other drugs, medicaments and biological substances; Z91.048 Other nonmedicinal substance allergy status; Z82.49 Family history of ischemic heart disease and other diseases of the circulatory system
CPT/HCPCS: 36415; 72131; 72192; 80053; 80164; 83605; 84702; 85025; 85610; 85730; 86140; 96374; 96375; 99283; J1885; J2060; J2405; J3360